=== PATIENT | male | born 1970 | race Caucasian/White ===

== ENCOUNTER 2024-09-24 15:51 | Observation (INO) | payer BC, SELFPAY ==
--- NOTE | 2024-09-12 10:52 | PC.NURSE ---
Report to the Outpatient Waiting Room, entrance under the green pavilion located off [facility], at time __7 AM on date _09/23/24 . Planned Procedure Time: __9 AM .? Time changes happen often and if your time is changed the preop area will call you the afternoon before. - You and your visitor will be asked to self-screen and do not enter if you have any COVID symptoms. Please call surgeon if you need to reschedule. - A mask is optional within the hospital at this time. Patients may have clear liquids (water, carbonated beverages, clear teas, apple juice) until 3 hours prior to surgery ( 6AM ) with a maximum of 20 ounces. - No food from midnight until time of surgery and no smoking, or chewing tobacco (or any form of nicotine). No chewing gum, candy or mints. Take only the following medications with a SIP of water on the morning of surgery: ___OXYCODONE IF NEEDED FOR PAIN,RIFAXIMIN DO NOT STOP ANY OF YOUR OTHER PRESCRIPTION MEDICATIONS PRIOR TO SURGERY EXCEPT THE FOLLOWING Hold all vitamins and supplements for 3 days per anesthesiologist. Medications to discontinue per physician NONE Please no make-up, nail bahamian, hairspray, perfume, deodorant, or body powder the day of surgery.? No jewelry (including any body piercings) or valuables the day of surgery, leave them at home.? Please take a shower or bath the night before, or the morning of, surgery with an antibacterial soap.? Wear comfortable, loose fitting clothing.? Children are encouraged to wear pajamas. - Jewelry must be removed prior to entering the operating room.? Rings and piercings that are not removed may be cut off. - The hospital will not accept responsibility for valuables.? - Please leave all valuables, including medications, at home the day of surgery. If you are going home after surgery, a licensed pickup driver must drive you home.? - NO public transportation without another adult if you receive anesthesia. - We recommend that an adult stay with you for 24 hours following discharge. - We also recommend that you do not drive, make important decision, drink alcoholic beverages, or take any drugs that were not prescribed by your health care provider for at least 24 hours after your discharge time. For Pediatric surgeries, we recommend two adults accompany the child home. Follow any additional instructions given to you from your surgeon. Telephone instructions given to ___PATIENT and asked if any additional questions and then verbalized understanding. Patient advised to call surgeon office or pre surgery nurse liaison [phone] if any additional questions.
[2024-09-12 11:48] VITALS: BMI 28.7
[2024-09-23] VITALS (12 sets, daily range): BP systolic 104–121; BP diastolic 61–78; PULSE 74–95; RESP 12–20; TEMP 36.3–37.2; O2SAT 90–100
--- OUTSIDE RECORDS SUMMARY | 2024-09-23 00:55 | XMS_ITS | Data Portability ---
Author Organization [facility], [address] ([place]) Address [address] 4th [place] [address] Care Team Providers Care Marketing Compliance Manager Name Role Phone VENTURA BANG Recreation Therapist [phone] IBAN SOUZA Primary Care Provider Assessment Encounter Date Assessment Date Assessment LastModified by Organization Details LastModified Time 04/18/2024 04/18/2024 53-year-old male preop appointment for neck fusion surgery. RCRI score is low, he is a surgical risk is acceptable. Labs EKG and MRSA all reviewed no significant abnormality. Advised not to take any NSAID 5 days before surgery. Other preop and postop per surgeon recommendation. I have discussed management and plan with patient. Patient verbalized understanding and agreed with plan. This note was dictated using [employer] speech recognition software. Follow-up with your PCP for chronic conditions and 1 to 2 months. 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 Unfortunately hepatic encephalopathy developed after TIPS and has been difficult to control. He is currently on lactulose plus Xifaxan. He continues to experience difficulty concentrating and frequent forgetfulness. However, symptoms are limited to that and has not required hospitalization. Ascites has for the most part resolved and currently things are stable on furosemide 80 mg and Aldactone 300 mg both once in the morning. Patient has developed multiple hernias in the abdomen requiring surgical interventions. In umbilical hernia that got strangulated and was operated on with subsequent prolonged hospital stay. Then ventral abdominal wall hernia that was operated on in February in [place] per patient. Patient has had more abdominal wall hernias since then and he continues to follow-up in [place] with his surgeon there. Last imaging of the liver was in December showing no focal hepatic lesions of concern. There was a 15 mm left upper kidney indeterminate lesion. Patient has had a fall and multiple fractures and injuries happen because of that. He recently had a cervical spine surgery. Before that he had bilateral shoulder surgeries from the fall. On examination patient was alert and oriented x3, not in apparent distress, well groomed, normal apparent judgment and memory however he was a little slow to respond. Moist mucous membranes with pink conjunctiva and anicteric sclera. No respiratory distress. No ascites detected on examination today. No lower extremity edema. Skin is dry. Normal affect. Assessment/Plan: Decompensated alcoholic cirrhosis: -Liver ultrasound plus AFP in June of this year. -Continue both furosemide 80 mg and Aldactone 300 mg in the morning. -Continue both Xifaxan and lactulose. -Patient will continue to follow-up with his surgeons in [place] regarding his abdominal wall hernias. -A note will be sent to patient's PCP to make sure they are aware of the left kidney lesion to follow-up on as they see fit. -Follow-up in 3 to 6 months. [email or web address] Not available 05/07/2024 11:40:53 05/07/2024 05/07/2024 In summary, this 53-year-old male with a PMH significant for alcoholic liver cirrhosis with ascites and esophageal varices (quit drinking about 7 years ago), prior episodes of hepatic encephalopathy, hernia of the anterior abdominal wall s/p repair on 03/06/24, recently identified kidney lesion, and multiple orthopedic surgeries, most recently of the left shoulder was initially referred to Neurosurgery for cervical stenosis, symptoms including ataxia and RUE pain and paresthesias. His symptoms began after a fall off of a tractor. An MRI of the cervical spine ([facility]; 01/04/24) demonstrated multilevel degenerative changes most significant at C5-6 and C6-7 with moderately severe central and severe bilateral foraminal stenosis, no cord signal changes. Mr. Pickard returns to the office today for a 2 week post-operative follow up status post C5-6-7 ACDF on 04/22. Clinically, he tells me his right arm pain is completely resolved. He is, however, concerned with pain and grinding in the back of the neck. He has been taking the hydrocodone fairly regularly, but took the muscle relaxer only once time. He denies fever, chills, drainage, ataxia, new weakness, difficulty swallowing. His incision looks great- nearly completely healed. At this point, increase activities as tolerated without lifting greater than 20 pounds. He is clear to resume driving as long as he is not taking the narcotic pain medication. Continue to wash the incision lightly with mild soap and water. We will refill the Hydrocodone. I feel the neck pain/grinding may be due to arthritis and also post surgical muscle spasm. We will go ahead and get xrays today, but I believe he just needs to give things more time to heal. Notify the clinic with any fever, drainage, dehiscence, increased pain, need for refills etc. Follow up at 6 weeks post op for clinical re-evaluation and at which point we will discuss the possibility of formal physical therapy. Thank you for allowing us to participate in this patient's care. [email or web address] Not available 05/07/2024 10:21:46 06/06/2024 06/06/2024 In summary, this 53 year old male six weeks status post C5-6-7 ACDF for symptoms of neck pain and right C6/C7 radiculopathy returns for follow up via Telehealth Visit. The patient advises that he is doing well. He states that his arm, shoulder, wrist and elbow, he states that he has zero pain. He denies difficulty swallowing or voice hoarseness or denies apraxia. He states that he has some difficulty walking, but attributes it to having two hernias. He denies drainage or swelling of the incision. Incision appears well-healed. Overall, I am pleased with this patient's recovery from surgery. I look forward to his three month follow up visit with no new imaging. Thank you for allowing us to participate in this patient's care. [email or web address] Not available 06/06/2024 14:20:43 07/18/2024 07/18/2024 Mr. Pickard is a 53-year-old who is now 3 months status post C5-7 ACDF for neck pain and right upper extremity radiculopathy (04/22/24). He reports that his arm symptoms are completely resolved. He continues to have spasm across the neck/shoulders and is on a muscle relaxer. He denies new ataxia, weakness, etc.. Overall, he is very pleased with the results of the surgery. Xrays from today show no complications. He tells me that he has a history of lumbar spinal surgery x 2. He has had longstanding numbness of the right foot after the second surgery. He is wondering if some of his back issues may be attributed to hernia that is requiring intervention in the near future. I recommend that he have that taken care of first, and if he continues to have back and lower extremity symptoms he would need to be worked up by his primary care physician with possible 6 weeks PT or medications prior to MRI. Typically, we would see patients at 6 months postop. But he is doing very well and request to follow-up as needed. He is aware to call with any questions or concerns and we are happy to see him again. [email or web address] Not available 07/18/2024 10:31:23 Plan of Treatment Reminders Order Date Submit Date Provider Last Modified By Organization Details Last Modified Time Details Appointments Establish ed Patient 20.EST 2024 08:00A M Dr. Ventura Bang Not available Not available Not available Lab None recorded. Referral None recorded. Procedures None recorded. Surgeries None recorded. Imaging XR, cervical spine, 2 or 3 view 2024 025 [facility], [address] [place] [address], [id number], 05/07/2024 11:28:53 Medication Orders hydrocodo ne 7.5 mg-acetam inophen 325 mg tablet 2024 025 [email or web address] [facility] [address] [place], [address], 05/07/2024 09:53:46 Patient TargetsNo targets recorded. Patient InstructionsNo instructions recorded. Reason for Referral None Reported. Results Created Date Observation Date Name Description Value Unit Range Abnormal Flag Note LastModifiedBy Organization Detail LastModifiedTime 04/11/20 24 04/11/2024 CBCW/ DIFF WBC 5.51 x10 4.23-9 .07 Not Available [facility] Only - [facility] [address] [place] [address], [id number], 04/11/2024 10:16:45 04/11/20 24 04/11/2024 CBCW/ DIFF RBC 4.38 x10 4.63-6 .08 low Not Available Sc Only - [facility] [address] [place] [address], [id number], 04/11/2024 10:16:45 04/11/20 24 04/11/2024 CBCW/ DIFF hemoglobin 14.2 g/dL 13.7-1 7.5 Not Available Sc Only - [facility] [address], [address], 04/11/2024 10:16:45 04/11/20 24 04/11/2024 CBCW/ DIFF hematocrit 41.2 % 40.1-5 1.0 Not Available Sc Only - [facility] [address], [address], 04/11/2024 10:16:45 04/11/20 24 04/11/2024 CBCW/ DIFF MCV 94.1 fL 79.0-9 2.2 high Not Available Sc Only - [facility] [address] [place] [address], [id number], 04/11/2024 10:16:45 04/11/20 24 04/11/2024 CBCW/ DIFF MCH 32.4 pg 25.7-3 2.2 high Not Available Sc Only - [facility] [address] [place] [address], [address], 04/11/2024 10:16:45 04/11/20 24 04/11/2024 CBCW/ DIFF MCHC 34.5 g/dL 32.3-3 6.5 Not Available Sc Only - [facility] [address] [place] [address], 12506, 04/11/2024 10:16:45 04/11/20 24 04/11/2024 CBCW/ DIFF rdwcv 13.3 % 11.6-1 4.4 Not Available Sc Only - [facility] [address] [place] [address], [address], 04/11/2024 10:16:45 04/11/20 24 04/11/2024 CBCW/ DIFF rdwsd 46.3 fL 35.1-4 3.9 high Not Available Sc Only - [facility] [address] [place] [address], [id number], 04/11/2024 10:16:45 04/11/20 24 04/11/2024 CBCW/ DIFF MPV 9.4 fL 9.4-12 .4 Not Available Sc Only - [facility] [address] [place] [address], [id number], 04/11/2024 10:16:45 04/11/20 24 04/11/2024 CBCW/ DIFF platelets 124 x10 163-33 7 low Not Available Sc Only - [facility] [address] [place] [address], [id number], 04/11/2024 10:16:45 04/11/20 24 04/11/2024 APTT APTT 32.7 secon d(s) 22.9-3 4.4 APTT Hepar in Thera peuti c Range is 73 - 108 secon ds Not Available Sc Only - [facility] [address] [place] [address], [id number], 04/11/2024 10:41:45 04/11/20 24 04/11/2024 PT prothrombin time 14.6 secon d(s) 12.0-1 5.0 Not Available Sc Only - [facility] [address] [place] [address], [id number], 04/11/2024 10:41:46 04/11/20 24 04/11/2024 PT INR 1.1 INR Thera peuti c Range value shoul d be betwe en 2 and 3 Not Available Sc Only - [facility] [address] [place] [address], [id number], 04/11/2024 10:41:46 04/11/20 24 04/11/2024 HFP albumin 3.4 g/dL 3.4-5. 0 Not Available Tn Only - [facility] [address], [address], 04/11/2024 11:14:26 04/11/20 24 04/11/2024 HFP bilirubin (direct) 0.31 mg/dL 0.00-0 .20 high Not Available Sc Only - [facility] [address] [place] [address], [id number], 04/11/2024 11:14:26 04/11/20 24 04/11/2024 HFP bilirubin (total) 0.9 mg/dL 0.2-1. 0 Not Available Sc Only - [facility] [address] [place] [address], [id number], 04/11/2024 11:14:26 04/11/20 24 04/11/2024 HFP AST 39 u/L 15-37 high Not Available Tn Only - [facility] [address] [place] [address], [id number], 04/11/2024 11:14:26 04/11/20 24 04/11/2024 HFP ALT 40 u/L 16-63 Not Available Tn Only - [facility] [address] [place] [address], [id number], 04/11/2024 11:14:26 04/11/20 24 04/11/2024 HFP alk phos 172 u/L 46-116 high Not Availab le Sc Only - [facility] [address] [place] [address], [id number], 04/11/2024 11:14:26 04/11/20 24 04/11/2024 HFP total protein 6.4 g/dL 6.4-8. 2 Not Available Sc Only - [facility] [address] [place] [address], [id number], 04/11/2024 11:14:26 04/11/20 24 04/11/2024 PSA PSA <0.13 NG/mL 0.13-3 .50 low The Sieme ns Dimen melisa Total PSA enzym e immun oassa y was used. Resul ts obtai luis with diffe rent assay metho ds canno t be used inter marek tapia . The jaciel ntrat ion of Total PSA in a given speci men deter mined with assay s from diffe rent manuf actur ers can vary due to diffe rence s in assay metho ds and reage nt speci ficit y. If, in the cours e of monit oring a patie nt, the assay metho d used for deter minin g PSA level s seria lly is jara ed, addit ional seque ntial testi ng shoul d be ann ed out. Not Available Sc Only - [facility] [address], [address], 04/11/2024 11:30:47 04/11/20 24 04/11/2024 UACS color Straw Not Available Sc Only - [facility] [address] [place] [address], [address], 04/11/2024 10:33:05 04/11/20 24 04/11/2024 UACS appearance Clear Not Avail able Sc Only - [facility] [address] [place] [address], [id number], 04/11/2024 10:33:05 04/11/20 24 04/11/2024 UACS specific gravity 1.006 1.003- 1.035 Not Available Sc Only - [facility] [address] [place] [address], [id number], 04/11/2024 10:33:05 04/11/20 24 04/11/2024 UACS pH urine 7.0 5.0-8. 0 Not Available Sc Only - [facility] [address] [place] [address], [id number], 04/11/2024 10:33:05 04/11/20 24 04/11/2024 UACS protein Negati ve Not Available Sc Only - [facility] [address] [place] [address], 114[address], 04/11/2024 10:33:05 04/11/20 24 04/11/2024 UACS urine glucose Negati ve Not Available Tn Only - [facility] [address] [place] [address], [id number], 04/11/2024 10:33:05 04/11/20 24 04/11/2024 UACS ketones Negati ve Not Available Tn Only - [facility] [address] [place] [address], [id number], 04/11/2024 10:33:05 04/11/20 24 04/11/2024 UACS urine bilirubin Negati ve Not Available Tn Only - [facility] [address] [place] [address], [id number], 04/11/2024 10:33:05 04/11/20 24 04/11/2024 UACS urine HGB Negati ve Not Available Tn Only - [facility] [address] [place] [address], 50[address], 04/11/2024 10:33:05 04/11/20 24 04/11/2024 UACS nitrite Negati ve Not Available Tn Only - [facility] [address] [place] [address], 09645, 04/11/2024 10:33:05 04/11/20 24 04/11/2024 UACS leukocyte esterase Negati ve Not Available Tn Only - [facility] [address] [place] [address], [address], 04/11/2024 10:33:05 04/11/20 24 04/11/2024 UACS urobilinogen Negati ve Refer ence Range : <=1 Not Available Tn Only - [facility] [address] [place] [address], [id number], 04/11/2024 10:33:05 04/11/20 24 04/11/2024 UACS urine WBCs 0-2 Refer ence Range : <=5 Not Available Tn Only - [facility] [address] [place] [address], 06115, 04/11/2024 10:33:05 04/11/20 24 04/11/2024 UACS urine RBCs 0-2 Refer ence Range : <=2 Not Available Sc Only - [facility] [address] [place] [address], 21923, 04/11/2024 10:33:05 04/11/20 24 04/11/2024 UACS squamous epithelial cells Few Refer ence Range : <=3+ Not Available Tn Only - [facility] [address] [place] [address], [id number], 04/11/2024 10:33:05 04/11/20 24 04/11/2024 UACS bacteria Negati ve Refer ence Range : <=Tra ce, Non-C ath Not Available Sc Only - [facility] [address] [place] [address], 72512, 04/11/2024 10:33:05 04/11/20 24 04/11/2024 UACS urine ascorbic acid Negati ve Ascor bic acid can inter fere with the detec tion of blood , gluco se, and nitri te. Not Available Tn Only - [facility] [address] [place] [address], [address], 04/11/2024 10:33:05 04/11/20 24 04/11/2024 AUTOD IFF neutrophils 67.6 % 34.0-6 7.9 Not Available Sc Only - [facility] [address] [place] [address], [id number], 04/11/2024 10:20:57 04/11/20 24 04/11/2024 AUTOD IFF lymphocytes 17.2 % 21.8-5 3.1 low Not Available Tn Only - [facility] [address] [place] [address], 94897, 04/11/2024 10:20:57 04/11/20 24 04/11/2024 AUTOD IFF monocytes 9.6 % 5.3-12 .2 Not Available Sc Only - [facility] [address] [place] [address], 75367, 04/11/2024 10:20:57 04/11/20 24 04/11/2024 AUTOD IFF eosinophils 4.4 % 0.8-7. 0 Not Available Sc Only - [facility] [address] [place] [address], [address]13, 04/11/2024 10:20:57 04/11/20 24 04/11/2024 AUTOD IFF basophils 0.5 % 0.2-1. 2 Not Available Sc Only - [facility] [address] [place] [address], 15361, 04/11/2024 10:20:57 04/11/20 24 04/11/2024 AUTOD IFF imm auto 0.7 % 0.0-1. 5 Not Available Tn Only - [address], [address], 04/11/2024 10:20:57 04/11/20 24 04/11/2024 AUTOD IFF NRBC auto 0.0 /100W BC 0.0-0. 2 Not Available Sc Only - [address], [address], 04/11/2024 10:20:57 04/11/20 24 04/11/2024 AUTOD IFF absolute neutrophils 3.72 x10 1.78-5 .38 Not Available Tn Only - [address], [address], 04/11/2024 10:20:57 04/11/20 24 04/11/2024 AUTOD IFF absolute lymphocytes 0.95 x10 1.32-3 .57 low Not Available Sc Only - [facility] [address] [place] [address], 21292, 04/11/2024 10:20:57 04/11/20 24 04/11/2024 AUTOD IFF absolute monocytes 0.53 x10 0.30-0 .82 Not Available Sc Only - [facility] [address] [place] [address], 18632, 04/11/2024 10:20:57 04/11/20 24 04/11/2024 AUTOD IFF absolute eosinophils 0.24 x10 0.04-0 .54 Not Available Sc Only - [facility] [address] [place] [address], 94140, 04/11/2024 10:20:57 04/11/20 24 04/11/2024 AUTOD IFF absolute basophils 0.03 x10 0.01-0 .08 Not Available Sc Only - [facility] [address] [place] [address], 09094, 04/11/2024 10:20:57 04/11/20 24 04/11/2024 AUTOD IFF imm absolute 0.04 x10 0.00-0 .15 Not Available Sc Only - [facility] [address] [place] [address], 78503, 04/11/2024 10:20:57 04/11/20 24 04/11/2024 AUTOD IFF NRBC absolute 0.00 x10 0.00-0 .01 Not Available Sc Only - [facility] [address] [place] [address], 52933, 04/11/2024 10:20:57 04/11/20 24 04/11/2024 AUTOD IFF neutrophils 67.6 % 34.0-6 7.9 Not Available Sc Only - [facility] [address] [place] [address], 75400, 04/11/2024 10:16:44 04/11/20 24 04/11/2024 AUTOD IFF lymphocytes 17.2 % 21.8-5 3.1 low Not Available Sc Only - [facility] [address] [place] [address], 41349, 04/11/2024 10:16:44 04/11/20 24 04/11/2024 AUTOD IFF monocytes 9.6 % 5.3-12 .2 Not Available Sc Only - [facility] [address] [place] [address], 75171, 04/11/2024 10:16:44 04/11/20 24 04/11/2024 AUTOD IFF eosinophils 4.4 % 0.8-7. 0 Not Available Sc Only - [facility] [address] [place] [address], 10579, 04/11/2024 10:16:44 04/11/20 24 04/11/2024 AUTOD IFF basophils 0.5 % 0.2-1. 2 Not Available Sc Only - [facility] [address] [place] [address], 98581, 04/11/2024 10:16:44 04/11/20 24 04/11/2024 AUTOD IFF imm auto 0.7 % 0.0-1. 5 Not Available Sc Only - [facility] [address] [place] [address], 33409, 04/11/2024 10:16:44 04/11/20 24 04/11/2024 AUTOD IFF NRBC auto 0.0 /100W BC 0.0-0. 2 Not Available Sc Only - [facility] [address] [place] [address], [address], 04/11/2024 10:16:44 04/11/20 24 04/11/2024 AUTOD IFF absolute neutrophils 3.72 x10 1.78-5 .38 Not Available Sc Only - [facility] [address] [place] [address], 47864, 04/11/2024 10:16:44 04/11/20 24 04/11/2024 AUTOD IFF absolute lymphocytes 0.95 x10 1.32-3 .57 low Not Available Sc Only - [facility] [address] [place] [address], 96422, 04/11/2024 10:16:44 04/11/20 24 04/11/2024 AUTOD IFF absolute monocytes 0.53 x10 0.30-0 .82 Not Available Sc Only - [facility] [address] [place] [address], 93725, 04/11/2024 10:16:44 04/11/20 24 04/11/2024 AUTOD IFF absolute eosinophils 0.24 x10 0.04-0 .54 Not Available Sc Only - [facility] [address] [place] [address], 94341, 04/11/2024 10:16:44 04/11/20 24 04/11/2024 AUTOD IFF absolute basophils 0.03 x10 0.01-0 .08 Not Available Sc Only - [facility] [address] [place] [address], 08174, 04/11/2024 10:16:44 04/11/20 24 04/11/2024 AUTOD IFF imm absolute 0.04 x10 0.00-0 .15 Not Available Sc Only - [facility] [address] [place] [address], 80821, 04/11/2024 10:16:44 04/11/20 24 04/11/2024 AUTOD IFF NRBC absolute 0.00 x10 0.00-0 .01 Not Available Sc Only - [facility] [address] [place] [address], 94342, 04/11/2024 10:16:44 04/12/20 24 04/12/2024 CBCW/ DIFF WBC 5.05 x10 4.23-9 .07 Not Available Sc Only - [facility] [address] [place] [address], 29690, 04/12/2024 09:12:58 04/12/20 24 04/12/2024 CBCW/ DIFF RBC 3.98 x10 4.63-6 .08 low Not Available Sc Only - [facility] [address] [place] [address], 10882, 04/12/2024 09:12:58 04/12/20 24 04/12/2024 CBCW/ DIFF hemoglobin 13.0 g/dL 13.7-1 7.5 low Not Available Sc Only - [facility] [address] [place] [address], 29909, 04/12/2024 09:12:58 04/12/20 24 04/12/2024 CBCW/ DIFF hematocrit 37.4 % 40.1-5 1.0 low Not Available Sc Only - [facility] [address] [place] [address], 74484, 04/12/2024 09:12:58 04/12/20 24 04/12/2024 CBCW/ DIFF MCV 94.0 fL 79.0-9 2.2 high Not Available Sc Only - [facility] [address] [place] [address], 52356, 04/12/2024 09:12:58 04/12/20 24 04/12/2024 CBCW/ DIFF MCH 32.7 pg 25.7-3 2.2 high Not Available Sc Only - [facility] [address] [place] [address], 64712, 04/12/2024 09:12:58 04/12/20 24 04/12/2024 CBCW/ DIFF MCHC 34.8 g/dL 32.3-3 6.5 Not Available Sc Only - [facility] [address] [place] [address], 96160, 04/12/2024 09:12:58 04/12/20 24 04/12/2024 CBCW/ DIFF rdwcv 13.4 % 11.6-1 4.4 Not Available Sc Only - [facility] [address] [place] [address], 55312, 04/12/2024 09:12:58 04/12/20 24 04/12/2024 CBCW/ DIFF rdwsd 46.5 fL 35.1-4 3.9 high Not Available Sc Only - [facility] [address] [place] [address], 15795, 04/12/2024 09:12:58 04/12/20 24 04/12/2024 CBCW/ DIFF MPV 10.7 fL 9.4-12 .4 Not Available Sc Only - [facility] [address] [place] [address], 03727, 04/12/2024 09:12:58 04/12/20 24 04/12/2024 CBCW/ DIFF platelets 113 x10 163-33 7 low Not Available Tn Only - [facility] [address] [place] [address], 98126, 04/12/2024 09:12:58 04/12/20 24 04/12/2024 CMP sodium 136 mmol/ L 135-14 8 Not Available Tn Only - [facility] [address] [place] [address], 56804, 04/12/2024 09:33:18 04/12/20 24 04/12/2024 CMP potassium 3.9 mmol/ L 3.5-5. 3 Not Available Tn Only - [facility] [address] [place] [address], 31393, 04/12/2024 09:33:18 04/12/20 24 04/12/2024 CMP chloride 101 mmol/ L 96-112 Not Available Tn Only - [facility] [address] [place] [address], 80188, 04/12/2024 09:33:18 04/12/20 24 04/12/2024 CMP CO2 28 mmol/ L 23-33 Not Available Tn Only - [facility] [address] [place] [address], 36030, 04/12/2024 09:33:18 04/12/20 24 04/12/2024 CMP BUN 17 mg/dL 7-18 Not Available Tn Only - [facility] [address] [place] [address], 58143, 04/12/2024 09:33:18 04/12/20 24 04/12/2024 CMP creatinine 1.23 mg/dL 0.70-1 .30 Not Available Tn Only - [facility] [address] [place] [address], 67161, 04/12/2024 09:33:18 04/12/20 24 04/12/2024 CMP glucose 206 mg/dL 65-99 high Not Availabl e Tn Only - [facility] [address] [place] [address], [id number], 04/12/2024 09:33:18 04/12/20 24 04/12/2024 CMP calcium 8.2 mg/dL 8.5-10 .1 low Not Available Tn Only - [facility] [address] [place] [address], 79617, 04/12/2024 09:33:18 04/12/20 24 04/12/2024 CMP total protein 5.7 g/dL 6.4-8. 2 low Not Available Tn Only - [facility] [address] [place] [address], [address], 04/12/2024 09:33:18 04/12/20 24 04/12/2024 CMP albumin 2.9 g/dL 3.4-5. 0 low Not Available Tn Only - [facility] [address] [place] [address], [address], 04/12/2024 09:33:18 04/12/20 24 04/12/2024 CMP bilirubin (total) 0.8 mg/dL 0.2-1. 0 Not Available Tn Only - [facility] [address] [place] [address], 67[address], 04/12/2024 09:33:18 04/12/20 24 04/12/2024 CMP AST 35 u/L 15-37 Not Available Tn Only - [facility] [address] [place] [address], [address], 04/12/2024 09:33:18 04/12/20 24 04/12/2024 CMP alk phos 155 u/L 46-116 high Not Availab le Sc Only - [facility] [address] [place] [address], [address], 04/12/2024 09:33:18 04/12/20 24 04/12/2024 CMP ALT 36 u/L 16-63 Not Available Tn Only - [facility] [address] [place] [address], [address], 04/12/2024 09:33:18 04/12/20 24 04/12/2024 CMP anion gap 7 mmol/ L 7-16 Not Available Tn Only - [facility] [address] [place] [address], [address], 04/12/2024 09:33:18 04/12/20 24 04/12/2024 MRSA PCR MRSA PCR Not Detect ed MRSA DNA is NOT DETEC SARINA. A Negat priyank test resul t does not exclu de the possi bilit y of nasal colon izati on becau se test resul ts may be affec sarina by impro per speci men colle ction or becau se the numbe r of organ isms in the sampl e is below the limit of detec tion of the test. The Xpert MRSA NxG metho d was used for testi ng. The test perfo rmanc e has not been evalu ated in patie nts less than two years of age. The test is not inten ded to diagn ose, guide or monit or treat ment for MRSA infec tions , or deter mine susce ptibi lity to methi cilli n. The resul ts shoul d be inter prete d in conju nctio n with other labor atory and clini chi data avail able to the clini anamaria, and shoul d be used as an adjun ct to nosoc omial infec tion contr ol effor ts to ident gregor patie nts needi ng enhan sonam preca ution s. A posit priyank resul t does not neces saril y indic ate inter venti on eradi catio n failu re since nonvi able DNA may persi st. A negat priyank resul t follo wing a previ ously posit priyank test resul t may or may not indic ate eradi catio n succe ss. Becau se the detec tion of MRSA is depen dent on the quant ity DNA prese nt in the sampl e, relia ble resul ts are depen dent on prope r speci men colle ction , handl ing, and stora ge. Not Available Tn Only - [facility] [address] [facility], [place], [address], 04/12/2024 10:41:57 04/12/20 24 04/12/2024 RTUA color STRAW Not Available Tn Only - [facility] [address], [address], 04/12/2024 09:13:56 04/12/20 24 04/12/2024 RTUA appearance CLEAR Not Avail able Tn Only - [facility] [address] [place] [address], [address], 04/12/2024 09:13:56 04/12/20 24 04/12/2024 RTUA specific gravity 1.005 1.003- 1.035 Not Available Tn Only - [facility] [address] [place] [address], [address], 04/12/2024 09:13:56 04/12/20 24 04/12/2024 RTUA pH urine 7.0 5.0-8. 0 Not Available Tn Only - [address], [address], 04/12/2024 09:13:56 04/12/20 24 04/12/2024 RTUA protein NEGATI VE Not Available Tn Only - [address], [address], 04/12/2024 09:13:56 04/12/20 24 04/12/2024 RTUA urine glucose 2+ abnormal Not Available Tn On y - [address], [address], 04/12/2024 09:13:56 04/12/20 24 04/12/2024 RTUA ketones NEGATI VE Not Available Tn Only - [address], [address], 04/12/2024 09:13:56 04/12/20 24 04/12/2024 RTUA urine bilirubin NEGATI VE Not Available Tn Only - [address], [address], 04/12/2024 09:13:56 04/12/20 24 04/12/2024 RTUA urine HGB NEGATI VE Not Available Tn Only - [facility] [address] [place] [address], [address], 04/12/2024 09:13:56 04/12/20 24 04/12/2024 RTUA nitrite NEGATI VE Not Available Tn Only - [facility] [address] [place] [address], 24[address], 04/12/2024 09:13:56 04/12/20 24 04/12/2024 RTUA leukocyte esterase NEGATI VE Not Available Tn Only - [facility] [address] [place] [address], [address], 04/12/2024 09:13:56 04/12/20 24 04/12/2024 RTUA urobilinogen NEGATI VE Refer ence Range : <=1 Not Available [facility] [address] [place] [address], [address], 04/12/2024 09:13:56 04/12/20 24 04/12/2024 RTUA urine WBCs 3-5 Refer ence Range : <=5 Not Available Tn Only [facility] [address] [place] [address], [address], 04/12/2024 09:13:56 04/12/20 24 04/12/2024 RTUA urine RBCs 0-2 Refer ence Range : <=2 Not Available [facility] [address] [place] [address], [address], 04/12/2024 09:13:56 04/12/20 24 04/12/2024 RTUA squamous epithelial cells FEW Refer ence Range : <=3+ Not Available Tn Only - [facility] [address] [place] [address], [address], 04/12/2024 09:13:56 04/12/20 24 04/12/2024 RTUA bacteria NEGATI VE Refer ence Range : <=Tra ce, Non-C ath Not Available [facility] [address] [place] [address], [address], 04/12/2024 09:13:56 04/12/20 24 04/12/2024 RTUA urine ascorbic acid NEGATI VE Ascor bic acid can inter fere with the detec tion of blood , gluco se, and nitri te. Not Available Sc Only - [facility] [address] [place] [address], [address], 04/12/2024 09:13:56 04/12/20 24 04/12/2024 EGFR eGFR 70 mL/mi n/1.7 3m? This eGFR is calcu lated using 2020 CKD-E PI Creat inine equat ion witho ut race modif ier based on the NKF-A SN task force recom menda tions . In most healt hy peopl e, the yari l GFR is 90 mL/mi n/1.7 3 m2 or highe r. - A resul t of 60-89 mL/mi n/1.7 3 m2 witho ut kidne y damag e may be yari l in some peopl e (such as the elder ly, infan ts). - A resul t of 60-89 mL/mi n/1.7 3 m2 for three month s or more, along with kidne y damag e (such as persi stent prote in in the urine ), means the perso n has early kidne y disea se. - When the GFR is <60 for three month s or more, chron ic kidne y disea se (CKD) is prese nt. Not Available Sc Only - [facility] [address] [place] [address], [address], 04/12/2024 09:33:22 04/12/20 24 04/12/2024 AUTOD IFF neutrophils 68.9 % 34.0-6 7.9 high Not Available Sc Only - [facility] [address] [place] [address], [address], 04/12/2024 09:12:57 04/12/20 24 04/12/2024 AUTOD IFF lymphocytes 18.2 % 21.8-5 3.1 low Not Available Sc Only - [facility] [address] [place] [address], 7[address], 04/12/2024 09:12:57 04/12/20 24 04/12/2024 AUTOD IFF monocytes 9.3 % 5.3-12 .2 Not Available Tn Only - [facility] [address] [place] [address], [address], 04/12/2024 09:12:57 04/12/20 24 04/12/2024 AUTOD IFF eosinophils 2.4 % 0.8-7. 0 Not Available Tn Only - [facility] [address] [place] [address], [address], 04/12/2024 09:12:57 04/12/20 24 04/12/2024 AUTOD IFF basophils 0.6 % 0.2-1. 2 Not Available Tn Only - [address], [address], 04/12/2024 09:12:57 04/12/20 24 04/12/2024 AUTOD IFF imm auto 0.6 % 0.0-1. 5 Not Available Tn Only - [address], [address], 04/12/2024 09:12:57 04/12/20 24 04/12/2024 AUTOD IFF NRBC auto 0.0 /100W BC 0.0-0. 2 Not Available Sc Only - [address], [address], 04/12/2024 09:12:57 04/12/20 24 04/12/2024 AUTOD IFF absolute neutrophils 3.48 x10 1.78-5 .38 Not Available Sc Only - [facility] [address] [place] [address], [address], 04/12/2024 09:12:57 04/12/20 24 04/12/2024 AUTOD IFF absolute lymphocytes 0.92 x10 1.32-3 .57 low Not Available Tn Only - [facility] [address] [place] [address], 40605, 04/12/2024 09:12:57 04/12/20 04/12/2024 AUTOD IFF absolute monocytes 0.47 x10 0.30-0 .82 Not Available Tn Only - [address], [address], 04/12/2024 09:12:57 04/12/20 24 04/12/2024 AUTOD IFF absolute eosinophils 0.12 x10 0.04-0 .54 Not Available Tn Only - [address], [address], 04/12/2024 09:12:57 04/12/20 24 04/12/2024 AUTOD IFF absolute basophils 0.03 x10 0.01-0 .08 Not Available Tn Only - [address], [address], 04/12/2024 09:12:57 04/12/20 24 04/12/2024 AUTOD IFF imm absolute 0.03 x10 0.00-0 .15 Not Available Tn Only - [address], [address], 04/12/2024 09:12:57 04/12/20 24 04/12/2024 AUTOD IFF NRBC absolute 0.00 x10 0.00-0 .01 Not Available Tn Only - [address], [address], 04/12/2024 09:12:57 05/07/19 25 05/07/2024 XR, cervi chi spine , 2 [place] 3 [place] [address] Teleph one [phone] Name: Jose Alberto Varma mp [id number] am Date: 2024 Age: 53Phys ician: Joshua n, SQL DATA ANALYST, Sonia adan : 1970Ex aminat ion: XR CERVIC AL 2 OR 3 VIEWS EXAMIN ATION: Cervic al Spine HISTOR Y: Fall 9 feet in September 2023. Surger y . Follow up imagin g. No compla ints. TECHNI QUE: 3 views of the cervic al spine obtain ed. COMPAR NATE: 024 FINDIN GS: There is new anteri or plate and screw fixati on of interb jennifer grafts spanni ng C5-C7. Hardwa re appear s intact and well seated . There is straig htenin g of the lordos is withou t sublux ation. Verteb ral body height s are mainta ined. Nonope rative disc height s are mainta ined. Mild facet hypert rophy. Base of the odonto id is intact , and latera l masses are normal ly aligne d. Postop erativ e change s to the left clavic le. IMPRES MELISA: New C5-C7 fusion withou t compli cating featur e. Electr onical ly signed in [place] cribe by: JOSE ALBERTO COLEMAN MD on:04/24 10:25 AM cc: Page PAGE 1 of [facility] 1 CARLOS Sc Only - [facility] [address] [place] [address], [address], 05/14/2024 12:44:54 05/07/19 25 01/05/2024 MRI, cervi chi spine , w/o contr ast No observ ation record ed. [email or web address] Not Available 2024 18:29:21 07/19/19 25 07/18/2024 XR, cervi chi spine , 2 or [address] [address] Teleph one Name: Jose Alberto Varma mp [id number] am Date: 2024 Age: 53Phys ician: Gloria jimenez MD, Leandra : 1970Ex aminat ion: XR CERVIC AL 2 OR 3 VIEWS EXAM: XR CERVIC AL 2 OR 3 VIEWS HISTOR Y: 2 month post op follow up, No new issues . TECHNI QUE: Cervic al spine 3 views COMPAR NATE: Cervic al spine radiog raph 025 FINDIN GS: There is postop erativ e change of ACDF at C5-6 and C6-7. The surgic al hardwa re appear s simila r in alignm ent to the prior examin ation. Prever tebral soft tissue s are normal . No fractu re is visual ized. The facet joints are aligne d bilate rally. The odonto id proces s appear s intact . Partia lly imaged fixati ng plate and screws of the left clavic le is noted. IMPRES MELISA: Postop erativ e change as above withou t acute compli cation . Electr onical ly signed in [place]onnell cribe by: KARIE JULIAN MD on:06/23 8:38 AM cc: Page PAGE 1 of [facility] ES 1 [place] Sc Only - [facility] [address] [place] [address], [address], 07/20/2024 16:30:58 08/09/19 25 08/08/2024 US, abdom en, limit ed [facility] [address] [place] [address] Name: JOSE ALBERTO VARMA MP Age: 53 : 1970 Exam Date: 2024 ACCESS ION: [id number] ORDERI NG MD: VENTURA BANG EXAM: Ultras ound of the Abdome n, Limite d HISTOR Y: alcoho lic cirrho sis of liver, hx TIPS 2023 COMPAR NATE: Renal ultras ound TECHNI QUE: Graysc haleigh imagin g of the right upper quadra nt of the abdome n was perfor med. Target ed hepati c evalua tion. Patien t unable to hold breath for images . Best obtain able images are presen sarina. FINDIN GS Liver: Lobula sarina contou r liver with diffus e hetero geneou s echote xture and hypere chogen icity. Liver measur es approx imatel y 14 cm in cranio caudal dimens ion. Main portal vein and hepati c veins appear patent . Biliar y Tree: No eviden ce of intrah epatic or extrah epatic biliar y ductal dilata tion. Gallbl adder: 2 abutti ng echoge nicity in the gallbl adder lumen which appear s non mobile , measur ing 0.8 x 0.6 centim eters. Additi onal antide penden t echoge nicity in the gallbl adder fundus measur ing 1.0 x 0.8 x 0.8 cm. No eviden ce of gallbl adder wall thicke erin. TIPS appear s patent with peak systol ic veloci ty of 103.7 cm/sec . IVC is patent . Hepati c artery is within normal limits . IMPRES MELISA: Patenc y of the TIPS with normal veloci ty. Stigma ta hepati c cirrho sis withou t eviden ce of discre te suspic ious mass. Echoge radha lesion s in the gallbl adder fundus which appear non mobile and adhere nt to the wall. These could repres ent polyps versus adhere nt stones . Recomm end clinic al correl ation which may includ e attent ion on follow -up. This report was dictat ed remote ly by a [facility] Radiol ogist in [place], [place]. /PP:pp D: 2024 11:24 T: 2024 11:24 Final Report Dictat ed: 11:24 Jacob Case MD Signed : 11:24 Jacob Case MD [facility] Only - [facility] [address] [place] [address], [address], 08/16/2024 16:45:38 Result Notes None recorded. Problems Name Problem SNOMED Code Status Onset Date Resolution Date Notes Provider Name and Address Organization Details Recorded Time Pain of left shoulder joint 9297706110613 9109 Active 2023 Secily Fillip [facility] 4 14:12:43 Pain of right shoulder joint 4543891711714 9100 [facility] 4 14:23:35 Cervical radiculopat 25674803 Active 2023 Rosita Tobin, TRASH MAN, INVERTED BLOCK OPERATOR [address] [place] [address], [address], [facility] 4 12:58:11 Serum creatinine above reference range 233164363 Active 2023 Rosita Tobin, SUSANNA, INVERTED BLOCK OPERATOR [address] [place] [address], [address], [facility] 4 13:01:23 Erectile dysfunction 826332344 Active 2023 Madhuri Demian [facility] 4 12:17:46 Partial thickness rotator cuff tear 642547217 Active 2023 Concepcion Arevalo [facility] 4 13:50:13 Bursitis of right shoulder 9503907424791 07 Active 2023 Concepcion Arevalo [facility] 4 13:50:18 Closed fracture of clavicle 96373870 Active 2023 Concepcion Arevalo [facility] 4 13:50:34 Pain associated with internal prosthetic device 320382231 Active 2023 Concepcion Arevalo [facility] 4 13:51:08 Closed fracture of right scapula 3847645445034 9105 Active 2023 Concepcion Arevalo [facility] 4 13:51:31 Hernia of anterior abdominal wall 647769866 Active 2023 Marguerite Harvey null, [facility] 4 16:00:15 Esophageal varices 85908984 Active 2023 Anny Gilbert [facility] 4 21:17:39 Secondary erectile dysfunction 470032573 Active 2023 Ellen Mendosa, SUSANNA, INVERTED BLOCK OPERATOR [address] [place] [address], [place], [address], [facility] 4 09:37:01 Kidney lesion 1436034318421 0 Active 2023 Madhuri Demian [facility], [facility] 4 13:55:24 Spinal stenosis in cervical region 92651108 Active 2023 [facility] 4 15:39:23 Alcoholic cirrhosis 653594867 Active 2023 Ventura Bang MD [address] [place] [address], [address], [facility] 5 11:36:47 Closed fracture of left clavicle 2444574404559 9105 Active 2023 Adriana Ag [facility] 4 15:06:01 Ascites due to alcoholic cirrhosis 8599404333621 104 Active 2023 Ventura Bang MD [address] [place] [address], [address], [facility] 4 09:27:35 Peripheral edema 709290336 Active 2023 Ventura Bang MD [address] [place] [address], [address], [facility] 4 09:27:53 Hepatic encephalopa thy 28380106 Active 2023 Ventura Bang MD [address] [place] [address], [address], [facility] 5 11:36:58 Constipatio n 45186602 Active 2023 Gillian Greg [facility] 4 09:49:44 Problem Notes Documentation Provider Name and Address Organization Details Recorded Time [facility] [address] [place] [id number] Jose Alberto Pickard 53yo M 1970 #[id number] 05/07/2024 Cayetano Larsen MD, Jose Alberto Pickard was seen in our office today 05/07/2024, and a copy of that evaluation is enclosed. Thank you for allowing us to participate in the care of your patient. Please contact us with any questions. Sincerely, Electronically Signed by: VENTURA BANG MD Encounter Reason/Date 3month follow up 05/07/2024 - 10:20AM - [facility] ([place])ProblemsProblems not reviewed (last reviewed 04/18/2024) Erectile dysfunction - Onset: 12/19/2023 Esophageal varices - Onset: 05/25/2023 Hernia of anterior abdominal wall - Onset: 12/27/2023 Constipation - Onset: 11/17/2023 Alcoholic cirrhosis - Onset: 09/28/2023 Hepatic encephalopathy - Onset: 11/17/2023 Spinal stenosis in cervical region - Onset: 02/11/2024 Cervical radiculopathy - Onset: 12/13/2023 Peripheral edema - Onset: 11/17/2023 Closed fracture of clavicle - Onset: 12/21/2023, Left Partial thickness rotator cuff tear - Onset: 12/21/2023, Right Pain associated with internal prosthetic device - Onset: 12/21/2023 Closed fracture of left clavicle - Onset: 11/08/2023 Ascites due to alcoholic cirrhosis - Onset: 11/17/2023 Pain of left shoulder joint - Onset: 11/22/2023 Pain of right shoulder joint - Onset: 11/22/2023 Serum creatinine above reference range - Onset: 12/13/2023 Bursitis of right shoulder - Onset: 12/21/2023 Closed fracture of right scapula - Onset: 12/21/2023 Secondary erectile dysfunction - Onset: 01/05/2024 Kidney lesion - Onset: 01/18/2024 Allergies Allergies not reviewed (last reviewed 04/18/2024) ADHESIVE TAPE: Other - Skin gets pulled off BIAXIN: - Reaction: Other: silk sutures: body rejects; Comment: Other ; PENICILLINS: - Reaction: Swelling; Visual Disturbance; Anaphylaxis; Comment: Annotations: ANALY ORANTES [id number] 3:35PM Throat swells shut; ; SUTURE: - silk suture- infected in every spot where suture was SUTURES VENOM-HONEY BEE: - Comment: Bee sting ; Some allergies listed in Document: #[id number] could not be added to this patient's chart. Please review this document and add these allergies to the patient's chart manually as needed. Medications Reviewed Medications NameDate Source Constulose 10 gram/15 mL oral solutionTAKE 30 ML BY MOUTH UP TO THREE TIMES DAILY TNUHRM85/15/24 filled surescripts furosemide 80 mg tabletTake 1 tablet by mouth once daily04/11/24 renewed Ventura Bang MD HYDROcodone 7.5 mg-acetaminophen 325 mg tabletTake 1 tablet(s) every 6 hours by oral route as needed.05/07/24 prescribed Keerthi Olivas APRN, CNP lactulose 20 gram/30 mL oral solutionTake 30ML up to three times as day as needed.02/06/24 prescribed Ventura Bang MD sildenafiL 100 mg tabletTAKE 1/2 (ONE-HALF) TABLET BY MOUTH DIRECTED 1 HOUR PRIOR TO SEXUAL ACTIVITY LXGWBI36/04/24 filled surescripts spironolactone 100 mg tabletTAKE 1 & 1/2 (ONE & ONE-HALF) TABLETS BY MOUTH IN THE MORNING THEN REPEAT BETWEEN 1-2 PM IN THE AFTERNOON DAILY03/14/24 renewed Ventura Bang MD traZODone 50 mg tabletTAKE 1 & 1/2 (ONE & ONE-HALF) TABLETS BY MOUTH AT QZFGDNP13/09/25 renewed Ventura Bang MD Xifaxan 550 mg tabletTake 1 tablet by mouth twice daily04/11/24 renewed Ventura Bang MD Some medications listed in Document: #[id number] could not be added to this patient's chart. Please review this document and add these medications to the patient's chart manually as needed.Family HistoryFamily History not reviewed (last reviewed 02/07/2024) Unspecified Relation - Heart disease - Malignant neoplastic disease - Hypertensive disorder - Cerebrovascular accident - Diabetes mellitus Social HistoryReviewed Social History Substance UseDo you or have you ever smoked tobacco?: Never smokerSmokeless tobacco?: Currently chews tobaccoWhat is your level of alcohol consumption?: NoneEducation and OccupationAre you currently employed?: [employer], Type: Chronic Last Edited: 16 Feb 2016 8:21AM ICD9 Code: 305.1 Last Reviewed Date: 20160216 SnomedCode: 76286889 ICD10 Code: Z72.0 Consumes alcohol-daily, Type: Chronic Identified By: ADRIANA LIU Last Edited: 20 Aug 2020 2:16PM ICD9 Code: V49.89 Last Reviewed Date: 20200820 SnomedCode: 755099 ICD10 Code: Z78.9 Never a smoker, Type: Chronic Identified By: ADRIANA LIU Last Edited: 20 Aug 2020 2:16PM Last Reviewed Date: 20200820 SnomedCode: [id number] Surgical HistorySurgical & Procedure History not reviewed (last reviewed 01/17/2024) Removal of device - 01/26/2024 - R SCAPULA HW REMOVAL Optx clavicular fx w/int fix - 11/09/2023 - Left distal clavicle ORIF done [facility] with Dr Moody Additional HistoryNone recordedHistory of Present IllnessReason for visit: Referring provider: Previous history of MRSA Y Previous history VRE N Previous history of Cdiff N Blood Thinners? N ____ Diabetic? N ____ Latex Allergy? YReview of SystemsNone recordedPhysical ExamNone recordedProcedure DocumentationNone recordedAssessment/Lrsw85-e ear-old male with history of alcoholic cirrhosis complicated by refractory ascites which required placement of TIPS. Unfortunately hepatic encephalopathy developed after TIPS and has been difficult to control. He is currently on lactulose plus Xifaxan. He continues to experience difficulty concentrating and frequent forgetfulness. However, symptoms are limited to that and has not required hospitalization. Ascites has for the most part resolved and currently things are stable on furosemide 80 mg and Aldactone 300 mg both once in the morning. Patient has developed multiple hernias in the abdomen requiring surgical interventions. In umbilical hernia that got strangulated and was operated on with subsequent prolonged hospital stay. Then ventral abdominal wall hernia that was operated on in February in [place] per patient. Patient has had more abdominal wall hernias since then and he continues to follow-up in [place] with his surgeon there. Last imaging of the liver was in December showing no focal hepatic lesions of concern. There was a 15 mm left upper kidney indeterminate lesion. Patient has had a fall and multiple fractures and injuries happen because of that. He recently had a cervical spine surgery. Before that he had bilateral shoulder surgeries from the fall.On examination patient was alert and oriented x3, not in apparent distress, well groomed, normal apparent judgment and memory however he was a little slow to respond. Moist mucous membranes with pink conjunctiva and anicteric sclera. No respiratory distress. No ascites detected on examination today. No lower extremity edema. Skin is dry. Normal affect. Assessment/Plan: Decompensated alcoholic cirrhosis: -Liver ultrasound plus AFP in June of this year. -Continue both furosemide 80 mg and Aldactone 300 mg in the morning. -Continue both Xifaxan and lactulose. -Patient will continue to follow-up with his surgeons in [place] regarding his abdominal wall hernias. -A note will be sent to patient's PCP to make sure they are aware of the left kidney lesion to follow-up on as they see fit. -Follow-up in 3 to 6 months. 1.Alcoholic cirrhosis of liver with clypmrzQ98.31: Alcoholic cirrhosis of liver with ascites 2.Hepatic ssozanqtwtfkatL79.82: Hepatic encephalopathy Return to Office Leandra Collier MD for Post Op 15.EST at [address] [place] [address] Neurosurgery ([place]) on 06/04/2024 at 10:15 AM Ventura Bang MD for Established Patient 20.EST at [facility] 2nd Gastroenterology ([place]) on 09/27/2024 at 09:00 AM Eliza Larsen MD [address] [place] [address], [phone], [facility] 05/07/2024 12:20:24 Procedures Surgical History Date Name Laterality Status Provider Name and Address Organization Details Recorded Time 04/22/20 24 fusion of joint of cervical spine with internal fixation by anterior approach completed Katie Noe [facility] 07/18/2024 09:02:43 01/26/20 24 removal of device completed Abdiel Draper [facility] 02/08/2024 11:03:28 11/09/19 24 [place] Blank Procedure Template completed Arielle Moody MD [address] [place] [address], [phone], [facility] 11/09/2023 16:01:19 11/09/19 24 SC Anes PostOp Pain Up Ext Nerve Block completed Jason Mcgregor MD [address] [place] [address], [phone], [facility] 11/09/2023 13:59:07 11/09/19 24 Optx clavicular fx w/int fix completed Adriana Ag [facility] 11/13/2023 15:33:22 Imaging Results None recorded. Procedure Notes None recorded. Medical Equipment None Reported. Allergies Allergen ID Allergen Name Allergen Category Reaction Reaction Severity Criticality Documentation Date Start Date Code Code System Note Provider Name and Address Organization Details Recorded Time 4682943 adhesive tape environme nt,medica tion other Not available Not available 11/08/2023 98312 UNK [facility]le [facility] 14:52:40 5927262 suture Not available Not available Not available Not available 11/08/2023 46400 UNK silk sutur e- infe cted in every spot where sutur e was [facility] 4 14:53:38 7723947 Suture (physical object) Not available Not available Not available Not available 11/08/2023 27739 9007 SNOMED [facility] 4 15:02:15 922263 Biaxin medicatio n Not available Not available Not available 05/22/20232007 59672 9 RxNorm React ion: Other : silk sutur es: body rejec ts; Comme nt: Other ; Not Available [facility] 4 23:12:18 807053 Product containin g penicilli n (product) medicatio n Not available Not available Not available 05/22/20232007 77453 8001 SNOMED React ion: Swell ing; Visua l Distu rbanc e; Anaph ylaxi s; Comme nt: Annot ation s: ANALY ORANTES 2016 3:35P M Throa t swell s shut; ; Not Available [facility] 4 23:12:22 875368 honey bee venom environme nt Not available Not available Not available 05/22/20232007 50150 7 RxNorm Comme nt: Bee sting ; Not Available [facility] 4 23:12:23 Medications Name Sig Start Date Stop Date Status Note LastModified by Organization Details LastModified Time Prescript ion - Prior Authoriza tion Request active Not Available Not Available Not Available cyclobenz aprine 10 mg tablet TAKE 1 TABLET BY MOUTH THREE TIMES DAILY FOR 30 DAYS active Not Available Not Available No t Available furosemid e 40 mg tablet TAKE 1 TABLET BY MOUTH ONCE DAILY 12/19 completed Not Available Not Available Not Available trazodone 50 mg tablet TAKE 1 & 1/2 (ONE & ONE-HALF ) TABLETS BY MOUTH AT BEDTIME active Not Available Not Available No t Available hydrocodo ne 5 mg-acetam inophen 325 mg tablet 12/19 completed Not Available Not Available Not Available spironola ctone 100 mg tablet Take 3 tablets every day by oral route for 30 days. 2024 active GI-Annab a-sendin g 30 days at a time to keep dose correct for pt labs due in September Not Available Not Available Not Available midodrine 5 mg tablet TAKE 3 TABLETS BY MOUTH THREE TIMES DAILY 12/19 completed Not Available Not Available Not Available ciproflox acin 500 mg tablet TAKE 1 TABLET BY MOUTH EVERY 24 HOURS 12/12 completed Not Available Not Available Not Available sildenafi l 100 mg tablet TAKE 1/2 (ONE-NICOLETTE F) TABLET BY MOUTH DIRECTED 1 HOUR PRIOR TO SEXUAL ACTIVITY NEEDED active Not Available Not Available No t Available spironola ctone 25 mg tablet TAKE 1 TABLET BY MOUTH ONCE DAILY FOR 30 DAYS 11/16 completed Not Available Not Available Not Available meloxicam 7.5 mg tablet TAKE 1 TABLET BY MOUTH ONCE DAILY FOR 7 DAYS 12/19 completed Not Available Not Available Not Available furosemid e 80 mg tablet TAKE 1 TABLET BY MOUTH ONCE DAILY FOR 30 DAYS active Not Available Not Available No t Available hydrocodo ne 7.5 mg-acetam inophen 325 mg tablet TAKE 1 TABLET BY MOUTH EVERY 6 HOURS NEEDED active Not Available Not Available No t Available orphenadr ine citrate ER 100 mg tablet,ex tended release 12/19 completed Not Available Not Available Not Available gabapenti n 300 mg capsule 12/12 completed Not Available Not Available Not Available folic acid 1 mg tablet TAKE 1 TABLET BY MOUTH ONCE DAILY 12/19 completed Not Available Not Available Not Available mupirocin 2 % topical ointment APPLY TO EACH NOSTRIL TWICE DAILY FOR 5 DAYS PRIOR TO SURGERY 04/18 completed Not Available Not Available Not Available furosemid e 20 mg tablet TAKE 1 TABLET BY MOUTH ONCE DAILY WITH THE 40 MG TABLET 11/16 completed Not Available Not Available Not Available spironola ctone 50 mg tablet 11/16 completed Not Available Not Available Not Available oxycodone 5 mg tablet Take 1 tablet every 12 hours by oral route as needed, for PAIN. 05/07 completed Not Available Not Available Not Available Constulos e 10 gram/15 mL oral solution TAKE 60 ML BY MOUTH UP TO THREE TIMES DAILY NEEDED active Not Available Not Available No t Available pregabali n 25 mg capsule TAKE 1 CAPSULE BY MOUTH THREE TIMES DAILY 01/16 completed Not Available Not Available Not Available pregabali n 50 mg capsule TAKE 1 CAPSULE BY MOUTH THREE TIMES DAILY 05/07 completed Not Available Not Available Not Available oxycodone 10 mg tablet TAKE 1 TABLET BY MOUTH THREE TIMES DAILY NEEDED FOR SEVERE ABDOMINA L PAIN active Not Available Not Available No t Available Xifaxan 550 mg tablet TAKE 1 TABLET BY MOUTH TWICE DAILY active Not Available Not Available No t Available lactulose 20 gram/30 mL oral solution Take 30ML up to three times as day as needed. 2023 active Not Available Not Available Not Avai lable Vitals Date Recorded Body height Heart rate Oxygen saturation Oxygen saturation in Arterial blood by Pulse oximetry Systolic blood pressure Diastolic blood pressure Provider Name and Address Organization Details Last Updated DateTime 5 190.5 cm 89 /min 96 % 96 % 118 mm[Hg] 70 mm[Hg] Belem Mcclellan [facility] 5 09:41:25 Date Recorded Body height Body mass index (BMI) Body weight Heart rate Oxygen saturation Oxygen saturation in Arterial blood by Pulse oximetry Systolic blood pressure Diastolic blood pressure Provider Name and Address Organization Details Last Updated DateTime 5 190.5 cm 29.1 kg/m2 145092. 02 g 96 /min 99 % 99 % 110 mm[Hg] 60 mm[Hg] Molly [facility] 5 11:05:43 Date Recorded Body height Heart rate Oxygen saturation Oxygen saturation in Arterial blood by Pulse oximetry Systolic blood pressure Diastolic blood pressure Provider Name and Address Organization Details Last Updated DateTime 5 190.5 cm 115 /min 97 % 97 % 110 mm[Hg] 78 mm[Hg] Yadi Ro [facility] 5 09:45:40 Date Recorded Body height Body mass index (BMI) Body weight Heart rate Oxygen saturation Oxygen saturation in Arterial blood by Pulse oximetry Systolic blood pressure Diastolic blood pressure Provider Name and Address Organization Details Last Updated DateTime 4 190.5 cm 28.7 kg/m2 164272. 25 g 86.98 /min 99 % 99 % 100 mm[Hg] 58 mm[Hg] Molly Joyner [facility] 4 09:17:17 Social History Question Answer Notes LastModified by Organizat ion Details LastModified Time Tobacco Smoking Status Never Smoker Megan Joya [facility] 01/05/2024 09:10:59 Smokeless Tobacco? Currently Chews Tobacco [email or web address] Information not available 01/05/2024 Sex: Unknown Functional Status Question Answer Note LastModified by Organization D etails LastModified Time What is your level of alcohol consumption? None [email or web address] Information not available 12/20/2023 Are you currently employed? No [email or web address] Information not available 02/07/2024 Mental Status None recorded. Family History Relationship Description Onset Age of this Age Resolved Age Notes LastModified by Organization Details LastModified Time Unspecified Relation Heart disease Not available 2023 17:29:17 Unspecified Relation Malignant neoplastic disease [email or web address] Not available 2023 17:29:26 Unspecified Relation Hypertensive disorder [email or web address] Not available 2023 17:29:39 Unspecified Relation Cerebrovascu lar accident [email or web address] Not available 17:29:52 Unspecified Relation Diabetes mellitus [email or web address] Not available 2023 17:30:04 Medical History Condition Response Back Problems Y Immunizations Vaccine Type Date Status Note Provider Nam e and Address Organization Details Recorded Time COVID-19, mRNA, LNP-S, PF, 30 mcg/0.3 mL dose 03/09/2021 completed Madhurishen Arciniega [facility] 12/13/2023 12:45:52 COVID-19, mRNA, LNP-S, PF, 30 mcg/0.3 mL dose 03/30/2021 completed Madhuri Arciniega [facility] 12/13/2023 12:45:52 Tdap 10/22/2020 completed Madhuri Towers null, [facility] 12/13/2023 12:45:52 Hep B, adult 06/29/2017 completed Madhuri Towers null, [facility] 12/13/2023 12:45:52 Hep B, adult 12/23/2016 completed Madhuri Towers null, [facility] 12/13/2023 12:45:52 Hep B, adult 02/13/2017 completed Madhuri Towers null, [facility] 12/13/2023 12:45:52 Hep A, adult 06/29/2017 completed Madhuri Towers null, [facility] 12/13/2023 12:45:52 Hep A, adult 12/23/2016 completed Madhuri Towers null, [facility] 12/13/2023 12:45:52 Past Encounters Encounter ID Performer Location Encounter Start Date Encounter Closed Date Diagnosis/Indication Diagnosis SNOMED-CT Code Diagnosis ICD10 Code Diagnosis Note [id number] Arielle Moody MD [facility] ([place]) [address] [facility] [place] [address] 11/08/2023 12:34:21 11/20/2023 16:01:27 Closed fracture of left clavicle 9534270557 5760963 S42.002A [id number] [facility] ([place] [address] [place] [address] 11/09/2023 11:35:11 11/21/2023 10:03:00 [id number] Arielle Moody MD [facility] ([place]) [address] [place] [address] 11/09/2023 11:35:12 11/10/2023 15:28:13 [id number] Ventura Bang MD [address] ([place]) [address] [place] [address] 11/17/2023 08:50:07 11/17/2023 09:36:50 Alcoholic cirrhosis 041438355 K70.31 Ascites du e to alcoholic cirrhosis 5619774582 686904 K70.31 Peripheral edema 4647404 00 R60.9 Hepatic encephalopathy 77078564 K76.82 [id number] Arielle Moody MD [facility] ([place]) 15 [place] [address] 11/22/2023 13:08:12 11/24/2023 05:34:00 Closed fracture of left clavicle 8918779844 5736297 S42.032D Pain of ri ght shoulder joint 8997606043 9397447 M25.511 S42.111S [id number] Rosita Tobin, SUSANNA, INVERTED BLOCK OPERATOR [facility] ([place]) [address] [facility] [place] [address] 12/13/2023 12:02:58 12/13/2023 12:53:44 Cervical radiculopathy 86743436 M54.12 Serum crea tinine above reference range 229083055 R79.89 Alcoholic cirrhosis 4200 67052 K70.31 [id number] Arielle Mooyd MD [facility] ([place]) [address] [facility] [place] [address] 12/20/2023 13:14:08 12/22/2023 06:28:13 Partial thickness rotator cuff tear 660883349 M75.111 Additional diagnosis detail: Incomplete tear of right rotator cuff, unspecifie d whether traumatic Bursitis o f right shoulder 2034065911 27194 M75.51 Closed fra cture of clavicle 26311629 S42.002D Additional diagnosis detail: Closed displaced fracture of left clavicle with routine healing, unspecifie d part of clavicle, subsequent encounter Pain assoc iated with internal prosthetic device 196396319 T84.84XA Additional diagnosis detail: Pain due to internal orthopedic prosthetic devices, implants and grafts, initial encounter Closed fra cture of right scapula 6049298607 2949275 S42.101S Additional diagnosis detail: Closed fracture of right scapula, unspecifie d part of scapula, sequela [id number] Ellen Mendosa, SUSANNA, INVERTED BLOCK OPERATOR [address] [facility] ([place]) [address] [address] 01/05/2024 08:40:34 01/05/2024 12:37:49 Secondary erectile dysfunction 096272498 N52.9 Additional diagnosis detail: ED (erectile dysfunctio n) of organic origin User of sm okeless tobacco 719810857 Z72.0 Additional diagnosis detail: Smokeless tobacco use [id number] Rosita Tobin, TRASH MAN, INVERTED BLOCK OPERATOR [facility] ([place]) [address] [place] [address] 01/08/2024 14:33:44 01/08/2024 15:37:24 Cervical radiculopathy 79623503 M54.12 R93.7 Hernia of anterior abdominal wall 835925205 K43.9 [id number] Alexx Granados MD [address] [facility] ([place]) [address] [place] [address] 01/17/2024 14:39:02 01/19/2024 05:54:56 Hernia of anterior abdominal wall 439904782 K43.9 Alcoholic cirrhosis 4200 [address]167 K70.31 Chews tobacco 37275892 Z 72.0 [id number] Arielle Moody MD [facility] ([place]) [address] [facility] [place] [address] 02/07/2024 13:26:14 02/08/2024 18:20:42 Postoperative visit 609089134 Z48.89 [id number] Ventura Bang MD [facility] 2nd Gastroent erology ([place]) [address] [place] [address] 02/06/2024 10:33:25 02/06/2024 11:28:05 Alcoholic cirrhosis 507853230 K70.31 [id number] Leandra mullins MD [address] [place] ([place]) [address] [place] [address] 02/08/2024 10:12:35 02/08/2024 16:14:39 Spinal stenosis in cervical region 05210660 M48.02 [id number] Ceasar Case MD [facility] [address] [place] [address] 04/18/2024 08:40:37 04/18/2024 10:04:21 Preprocedural examination done 0009301615 34645 Z01.818 [id number] Keerthi Olivas APRN, INVERTED BLOCK OPERATOR [address] [facility] [place] ([place]) [address] [place] [address] 05/07/2024 08:37:01 05/07/2024 12:34:40 Cervical radiculopathy 62071079 M54.12 R93.7 [id number] Ventura Bang MD [address] Gastro[facility] [place]ology ([place]) [address] [facility],2nd [place] [address] 05/07/2024 10:52:22 05/07/2024 12:01:41 Alcoholic cirrhosis 130861188 K70.31 Hepatic encephalopathy 49802971 K76.82 [id number] Leandra mullins MD [address] [facility] [place] ([place]) [address] [place] [address] 06/06/2024 11:43:33 06/06/2024 13:58:03 Spinal stenosis in cervical region 03244006 M48.02 [id number] Keerthi Olivas APRN, INVERTED BLOCK OPERATOR [address] [facility] [place] ([place]) [address] [place] [address] 07/18/2024 09:20:34 07/18/2024 14:09:35 Cervical radiculopathy 17279441 M54.12 R93.7 Health Concerns Section Related Observation LastModified by Organization Detai ls LastModified Time None Recorded Concern Status LastModified by Organization Details LastModified Time None Recorded Advance Directives Directive None Recorded Payers Insurance Date Sequence Insurance Name Policy Number Policy Lopes Covered Member ID Lopes Member ID Guarantor Name 08/23/2024 1 [employer] [id number] [id number] Jose Alberto Pickard 06/21/2024 2 [facility] [id number] Julieta Pickard [id number] RADHA Jose Alberto Pickard 08/24/2024 2 [facility] (O) [id number] Julieta Pickard [id number] RADHA Jose Alberto Pickard 06/04/2024 PAYMENT PLAN Jose Alberto Pickard Notes Date Note Type Note Provider Name and Address Organization Details Recorded Time 04/18/2024 text/html 53-year-old male is here for preop appointment patient is going to have neck surgery on April 22 at [facility] by Dr. Nix. Patient has a chronic history of cirrhosis of the liver and patient is on multiple medication for that treatment. Patient is not active alcohol user. Patient has used around 7 years ago. Patient has no history of CAD or CVA or type 2 diabetes or CKD. No COPD or asthma. No sleep apnea. No complaint of easy bruise or easy fluid. Patient has taken anesthesia in the past without any side effects. No other question or concern. Ceasar Case MD [facility], [address], [facility] 04/19/2024 11:47:06 05/07/2024 text/html Jose Alberto Pickard is a 53-year-old male with a PMH significant for alcoholic liver cirrhosis with ascites and esophageal varices (quite drinking about 7 years ago), prior episodes of hepatic encephalopathy, hernia of the anterior abdominal wall s/p repair on 03/06/24, recently identified kidney lesion, and multiple orthopedic surgeries, most recently of the left shoulder who was referred to Neurosurgery for cervical stenosis. An MRI of the cervical spine ([facility]; 01/04/24) demonstrated multilevel degenerative changes most significant at C5-6 and C6-7 with moderately severe central and severe bilateral foraminal stenosis without cord signal changes. He was initially evaluated in the office on 02/08/24 with symptoms of neck pain, right C6/C7 radiculopathy, ataxia with falls, and numbness, tingling, and coldness of the right foot. His symptoms were worse when attempting to mobilize but Lyrica did offer some relief. Neurologic exam was significant for 4+ bilateral design technician, 4+ bilateral intrinsics, 4+ bilateral wrist extension and flexion, 4- right triceps, 4- right deltoid. Mr. Pickard returns to the office today for a 2 week post-operative follow up status post C5-6-7 ACDF on 04/22. Keerthi Olivas APRN, INVERTED BLOCK OPERATOR [address] [place] [address], [phone], [facility] 05/07/2024 10:22:40 05/07/2024 text/html Reason for visit : Referring provider: Previous history of MRSA Y Previous history VRE N Previous history of Cdiff N Blood Thinners? N Diabetic? N Latex Allergy? Y Ventura Bang MD [address] [place] [address], [phone], [facility] 05/07/2024 11:41:07 06/06/2024 text/html HPI:Mr. Pickard is a 53 year old male who is a patient of Dr. Larsen six weeks status post C5-6-7 ACDF returns for follow up via Telehealth Visit. Initial consult: 02/08/24 LAS presents with symptoms of neck pain and right C6/C7 radiculopathy. Neurologic exam significant for 4+ bilateral design technician, 4+ bilateral intrinsics, 4+ bilateral wrist extension and flexion, 4- right triceps, 4- right deltoid. MRI of the cervical spine ([facility] to [place]; 01/04/2024) reveals multilevel degenerative changes most significant at C5-6 and C6-7 with moderately severe central and severe bilateral foraminal stenosis. No cord signal changes. Offered C5-6-7 ACDF.04/22/24C5-6-7 ACDF05/07/24SAS 2 week POSTOP. right arm pain completely resolved, but concerned with pain and grinding in the back of the neck. taking the hydrocodone fairly regularly, but took the muscle relaxer only one time. incision looks great- nearly completely healed.FU at 6 weeks post op for clinical re-evaluation, will discuss PT06/06/24LAS Telehealth The patient advises that he is doing well. He states that his arm, shoulder, wrist and elbow, he states that he has zero pain. He denies difficulty swallowing or voice hoarseness or denies apraxia. He states that he has some difficulty walking, but attributes it to having two hernias.He denies drainage or swelling of the incision. I look forward to his three month follow up visit with flexion/extension views of the cervical spine. Past Medical/Surgical History:barbosa with alcoholic liver cirrhosis with ascites, hernia of the anterior abdominal wall, hepatic encephalopathy, recently identified kidney lesionmultiple orthopedic surgeries Conservative Measures: Per tinent Imaging:Cervical X-rays at [place] on 05/07/24.IMPRESSION: New C5-C7 fusion without complicating feature. Leandra Collier MD [address] [place] [address], [phone], [facility] 06/08/2024 12:22:03 07/18/2024 text/html HPI:Initial cons ult: 02/08/24 LAS presents with symptoms of neck pain and right C6/C7 radiculopathy. Neurologic exam significant for 4+ bilateral design technician, 4+ bilateral intrinsics, 4+ bilateral wrist extension and flexion, 4- right triceps, 4- right deltoid. MRI of the cervical spine ([facility] [place]; 01/04/2024) reveals multilevel degenerative changes most significant at C5-6 and C6-7 with moderately severe central and severe bilateral foraminal stenosis. No cord signal changes. Offered C5-6-7 ACDF.04/22/24 C5-6-7 ACDF05/07/24([facility]) 2 week POSTOP. right arm pain completely resolved, but concerned with pain and grinding in the back of the neck. taking the hydrocodone fairly regularly, but took the muscle relaxer only one time. incision looks great- nearly completely healed.FU at 6 weeks post op for clinical re-evaluation, will discuss PT06/06/24([facility]) Telehealth The patient advises that he is doing well. He states that his arm, shoulder, wrist and elbow, he states that he has zero pain. He denies difficulty swallowing or voice hoarseness or denies apraxia. He states that he has some difficulty walking, but attributes it to having two hernias. He denies drainage or swelling of the incision. I look forward to his three month follow up visit with flexion/extension views of the cervical spine.07/18/24([facility])- Right arm pain gone, just muscle spasm across neck/shoulders. Reported hx lumbar spinal surgery x 2 with residual right foot numbness. I recommend he have this worked up by his PCP and if he has new MRI we can see again. He also thinks some of the back issues may be due to kidney and hernia, so it it may be worthwhile to have those taken care of first. Patient would like to follow up PRN. Past Medical/Surgical History:barbosa with alcoholic liver cirrhosis with ascites, hernia of the anterior abdominal wall, hepatic encephalopathy, recently identified kidney lesionmultiple orthopedic surgeries Pertinent Imaging:Cervical X-rays at [place] on 05/07/24.IMPRESSION: New C5-C7 fusion without complicating feature. Keerthi Olivas, TRASH MAN, INVERTED BLOCK OPERATOR [address] [facility] [place], [address], [facility] 07/18/2024 10:31:48
--- OUTSIDE RECORDS SUMMARY | 2024-09-23 00:55 | XMS_ITS | Clinical Summary ---
Author Organization [facility] Address [address] [place] [address] Care Team Providers Care Equipment Inspector Name Role Phone Chencho Griffith MD Primary Care Provider [phone] Ventura Bang Unavailable Arielle Moody MD Unavailable Ventura Bang Unavailable Richard Das Unavailable Alexx Granados MD Unavailable Source Comments [facility],non-owned Affiliates and Associated Physician Practices is amultiple site organization consisting of ambulatory clinics and hospital sitesin [place], [place], [place] and [place]. This disclosure is being madepursuant to the Care Everywhere program and may not contain all information available regarding this patient. Last updated 18.[facility] Allergies Active Allergy Reactions Criticality Noted Date Comments Bee Venom Anaphylaxis High 09/06/2023 Penicillins Anaphylaxis High 09/06/2023 silk sutures [Other] Other Patient reports body rejected the sutures and developed an infection Skin Adhesives Skin Reactions 09/06/2023 Suture Material Unknown 02/26/2024 Medications * Be aware that medications may not be up to date on this document. Alwaysverify current medications with the patient. Constulose 10 GM/15ML solution Take 30 mL by mouth once daily 4 Active spironolactone (Aldactone) 100 MG tablet Take 3 (three) tablets by mouth once daily 4 Active Xifaxan 550 MG tablet Take 1 (one) tablet by mouth 2 times daily 4 Active furosemide (Lasix) 40 MG tablet Take 2 (two) tablets by mouth once daily 4 Active traZODone (Desyrel) 50 MG tablet Take 1 (one) tablet by mouth nightly as needed for Insomnia 4 Active oxyCODONE, immediate release, (Roxicodone) 5 MG tabletIndication s:Ventral hernia without obstruction or gangrene Take 1 (one) tablet by mouth every 6 hours as needed for Pain 30 tablet 5 Active Active Problems Problem Noted Date Diagnosed Date Ventral hernia without obstruction or gangrene 0 12/14/2023 Alcoholic cirrhosis of liver with ascites 2023 Encounter for pre-transplant evaluation for chronic liver disease 09/06/2023 Hepatic encephalopathy 09/06/2023 Alcohol use disorder 09/06/2023 S/P TIPS (transjugular intrahepatic portosystemi c shunt) 09/06/2023 Severe malnutrition 09/06/2023 Tobacco abuse 09/06/2023 Encounters Date Type Department Care Team Description 08/12/2024 Telephone [facility] - General Surgery [address] [place] [phone] Megan Wheeler, ED Coordination Of Care 07/17/2024 Telephone [facility] - [address] [phone] Rogerio Huertas MD Order 07/16/2024 10:30 AM CDT Office Visit [facility] - [address] [phone] Rogerio Huertas MD Alcoholic cirrhosis of liver with ascites (Primary Dx); Hepatic encephalopathy; S/P TIPS (transjugular intrahepatic portosystemic shunt); Ventral hernia without obstruction or gangrene 07/16/2024 Travel 06/27/2024 Orders Only [facility] PHYS SURGERY [address] [place] [phone] Dmitri Sinclair, DO Hernia of fascia 06/26/2024 11:30 AM BOBBIN COLLECTOR Office Visit [facility] TXP [facility]IME[facility] [address] [place] [phone] None, Physician Ventral hernia without obstruction or gangrene (Primary Dx); Follow-up examination following surgery 06/26/2024 10:58 AM BOBBIN COLLECTOR - 06/26/2024 11:59 PM BOBBIN COLLECTOR Hospital Encounter [facility] CAT SCAN [address] [place] [address] Jeane Rivas MD Discharge Disposition: Home or Self Care 06/26/2024 Travel from Last 3 Months Social History Tobacco Use Types Packs/Day Years Used Date Smoking Tobacco: Never Smokeless Tobacco: Current Chew Tobacco Cessation:Ready to Q uit: Not Asked; Counseling Given: Not Answered Alcohol Use Standard Drinks/Week Comments Not Currently 0 (1 standard drink = 0.6 oz pur e alcohol) last drink about 2 years ago AUDIT-C Answer Date Recorded Q1: How often do you have a drink containing alcohol? Never 03/06/2024 Q2: How many drinks containi ng alcohol do you have on a typical day when you are drinking? Patient does not drink Q3: How often do you have si x or more drinks on one occasion? Never 03/06/2024 Overall Financial Resource Strain (CARDIA) Answe r Date Recorded How hard is it for you to pa y for the very basics like food, housing, medical care, and heating? Not hard at all 03/06/2024 [facility] - Occupational Stress Questionnaire Answer Date Recorded Do you feel stress - tense, restless, nervous, or anxious, or unable to sleep at night because your mind is troubled all the time - these days? Not at all 03/06/2024 Hunger Vital Sign Answer Date Recorded Within the past 12 months, y ou worried that your food would run out before you got the money to buy more. Never true 03/06/20 24 Within the past 12 months, t he food you bought just didn't last and you didn't have money to get more. Never true 03/06/2024 PRAPARE - Transportation Answer Date Re corded In the past 12 months, has l ack of transportation kept you from medical appointments or from getting medications? No 02/22 In the past 12 months, has l ack of transportation kept you from meetings, work, or from getting things needed for daily living? No 03/06/2024 Housing Stability Vital Sign Answer Josh e Recorded In the last 12 months, was t here a time when you were not able to pay the mortgage or rent on time? No 03/06/2024 In the past 12 months, how m any times have you moved where you were living? 0 03/06/2024 At any time in the past 12 m [facility], were you homeless or living in a retirement (including now)? No 03/06/2024 Sex and Gender Information Value Date Recorded Sex Assigned at Not on file Legal Sex Male 1:08 PM CDT Gender Identity Not on file Sexual Orientation Not on file Last Filed Vital Signs Vital Sign Reading Time Taken Comments Blood Pressure 121/78 07/16/2024 10:50 AM CDT Pulse 96 07/16/2024 10:50 AM CDT Temperature 36.9 C (98.5 F) 07/16/2024 10:50 AM CDT Respiratory Rate 12 06/26/2024 11:2 4 AM BOBBIN COLLECTOR Oxygen Saturation 98% 07/16/2024 10: 50 AM CDT Inhaled Oxygen Concentration - - Weight 111.4 kg (245 lb 9.6 oz) 025 10:50 AM CDT Height 188 cm (6' 2) 07/16/2024 10:50 AM CDT Body Mass Index 31.53 07/16/2024 10:50 AM CDT Plan of Treatment Upcoming Encounters Date Type Department Care Team (Late st Contact Info) Description 12/31/2024 1:00 PM CDT Office Visit [facility] - GI [address] [place] [address], [place] [phone] Rogerio Huertas MD [address] [place] [address] [place] [address] Health Maintenance Due Date Last Done Comments COLOGUARD (AGES 45-75) - COLON CA SCREENING 1970 COLON MONITORING 1970 COLONOSCOPY - COLON CA SCREENING 1970 CT COLONOGRAPHY - COLON CA SCREENING 1970 Colorectal Cancer Screening 1970 FIT - COLON CA SCREENING 1970 FLEX SIG - COLON CA SCREENING 1970 LIPID TESTING 1970 HIV SCREENING 1985 DTAP/TDAP/TD VACCINES (1 - Tdap) 1989 HEPATITIS B VACCINE (1 of 3 - 19+ 3-dose series) 1989 PNEUMOCOCCAL VACCINE 50+ (1 of 2 - PCV) 1989 ZOSTER VACCINE (1 of 2) 2020 COVID-19 VACCINE (3 - season) 2023 03/30/2021, 03/09/2021 DEPRESSION SCREENING 04/24/2024 INFLUENZA VACCINE (Season Ended) 2024 SCREENING FOR DIABETES 03/10/2027 , 03/09/2024, 03/08/2024, Additional history exists HEPATITIS C SCREENING Completed 03/31/2016 HIB VACCINE Aged Out No longer eligi ble based on patient's age to complete this topic HPV VACCINE Aged Out No longer eligi ble based on patient's age to complete this topic MENINGOCOCCAL (Group B) VACCINE SHARED DECISION-MAKING Aged Out No longer eligible based on patient's age to complete this topic MENINGOCOCCAL GROUPS A/C/Y/W VACCINE Aged Out No longer eligible based on patient's age to complete this topic Medical Devices Implanted Type Area Correctional Officer Lieutenant Device Identifier Shelf Expiration Date Model / Serial / Lot Mesh Srg Sprmsh Ip Sepra 8x4in Rect Mfl Implanted:Qty: 1 on 03/06/2024 by Jeane Rivas MD at [facility] N/A: Abdomen [employer] [id number] 05/21/2025 [id number] / / [id number] Procedures Procedure Name Priority Date/Time Associated Diagnosis Comments CT ABDOMEN PELVIS W CONTRAST Routine 06/26/2024 11:11 AM BOBBIN COLLECTOR History of ventral hernia repair Alcoholic cirrhosis of liver with ascites Generalized abdominal pain CREATININE - POCT INTERFACED Routine 06/26/2024 11:04 AM BOBBIN COLLECTOR BASIC METABOLIC PANEL (CALCIUM TOTAL) Timed 03/10/2024 6:43 AM BOBBIN COLLECTOR from Last 3 Months or Most Recently Relevant to Health Maintenance Results * CT ABDOMEN AND PELVIS WITH IV CONTRAST (06/26/2024 11:11 AM BOBBIN COLLECTOR) Anatomical Region Laterality Modality Abdomen, Pelvis Computed Tomogra phy 06/26/2024 1:20 PM BOBBIN COLLECTOR Impressions 06/26/2024 5:05 PM BOBBIN COLLECTOR Impression: 1.Redemonstrated small ventral abdominal hernia with a wide mouth containing a small loop of nonobstructed small bowel. There is decreased herniation of small bowel compared to prior CT. There is some surrounding stranding/scarring of the abdominal wall fat. 2.Redemonstrated cirrhotic morphology of the liver and sequela of portal hypertension including portosystemic shunting, and splenomegaly. Patent TIPS. > Dictated by Len Cortez MD (residential green building designer). Gisselle Simmons MD have personally reviewed and interpreted this examination/study. > Interpreting Provider: Gisselle Andres MD on 06/26/2024 5:05 PM Narrative 06/26/2024 5:05 PM BOBBIN COLLECTOR PROCEDURE: CT ABDOMEN PELVIS W CONTRAST, DATE/TIME OF EXAM: 06/26/2024 11:12 AM, LOCATION [facility] INDICATION: Z98.890: History of ventral hernia repair Z87.19: History of ventral hernia repair K70.31: Alcoholic cirrhosis of liver with ascites (HCC) R10.84: Generalized abdominal pain ADDITIONAL CLINICAL INFORMATION: Ordering Provider Reason For Exam: assess for new hernia TECHNIQUE: CT of the abdomen and pelvis was performed following the uneventful administration of 100 mL of Isovue 370 intravenous contrast according to standard protocol. COMPARISON: CT liver 12/08/2023 Findings: Lower Chest: Lung bases are clear. Liver: Redemonstrated cirrhotic morphology of the liver. The TIPS is patent. There are paraesophageal and perigastric varices. Gallbladder and Bile Ducts: Multiple gallstones are seen. No wall thickening or pericholecystic fluid. Spleen: Spleen is enlarged up to 15 cm. Pancreas: Normal. Adrenals: Normal. Kidneys: The kidneys enhance symmetrically, no hydronephrosis or nephrolithiasis. Subcentimeter cyst in the left kidney. Gastrointestinal/Mesentery/Peritoneum/Retroperitoneum: Redemonstrated a small ventral abdominal hernia with a wide mouth containing mesenteric fat and minimally a loop of nonobstructed small bowel, series 3 image 98. Decreased herniation of small bowel compared to prior CT. There is some surrounding stranding/scarring of the abdominal wall fat, slightly increased compared to prior exam. The stomach and visualized loops of large and small bowel are otherwise unremarkable. Normal appendix. Bladder: Normal. Reproductive Organs: The prostate is partially calcified. Vasculature: Atherosclerotic calcification of the aorta and its branch vessels. Bones: Bone windows demonstrate no suspicious lytic or blastic lesions. The visible osseous structures are intact. Degenerative changes are seen in the spine. Soft tissues: MIld stranding in the left inguinal region with a clip. Procedure Note Day Andres MD - 06/26/2024 PROCEDURE: CT ABDOMEN PELVIS W CONTRAST, DATE/TIME OF EXAM: 06/26/2024 11:12 AM, LOCATION [facility] INDICATION: Z98.890: History of ventral hernia repair Z87.19: History of ventral hernia repair K70.31: Alcoholic cirrhosis of liver with ascites (HCC) R10.84: Generalized abdominal pain ADDITIONAL CLINICAL INFORMATION: Ordering Provider Reason For Exam: assess for new hernia TECHNIQUE: CT of the abdomen and pelvis was performed following the uneventful administration of 100 mL of Isovue 370 intravenous contrast according to standard protocol. COMPARISON: CT liver 12/08/2023 Findings: Lower Chest: Lung bases are clear. Liver: Redemonstrated cirrhotic morphology of the liver. The TIPS is patent.There are paraesophageal and perigastric varices. Gallbladder and Bile Ducts: Multiple gallstones are seen. No wall thickening or pericholecystic fluid. Spleen: Spleen is enlarged up to 15 cm. Pancreas: Normal. Adrenals: Normal. Kidneys: The kidneys enhance symmetrically, no hydronephrosis or nephrolithiasis. Subcentimeter cyst in the left kidney. Gastrointestinal/Mesentery/Peritoneum/Retroperitoneum: Redemonstrated a small ventral abdominal hernia with a wide mouth containing mesenteric fat and minimally a loop of nonobstructed small bowel, series 3 image 98. Decreased herniation of small bowel comparedto prior CT. There is some surrounding stranding/scarring of the abdominal wall fat, slightly increased compared to prior exam. The stomach and visualized loops of large and small bowel are otherwise unremarkable. Normal appendix. Bladder: Normal. Reproductive Organs: The prostate is partially calcified. Vasculature: Atherosclerotic calcification of the aorta and its branch vessels. Bones: Bone windows demonstrate no suspicious lytic or blastic lesions. The visible osseous structures are intact. Degenerative changes are seen inthe spine. Soft tissues: MIld stranding in the left inguinal region with a clip. Impression: 1.Redemonstrated small ventral abdominal hernia with a wide mouth containing a small loop of nonobstructed small bowel. There is decreased herniation of small bowel compared to prior CT. There is somesurrounding stranding/scarring of the abdominal wall fat. 2.Redemonstrated cirrhotic morphology of the liver and sequela of portal hypertension including portosystemic shunting, and splenomegaly. Patent TIPS. > Dictated by Len Cortez MD (residential green building designer). IGisselle MD have personally reviewed and interpreted this examination/study. > Interpreting Provider: Gisselle Andres MD on 06/26/2024 5:05 PM Jeane Rivas MD CT ORDERABLES Final R esult * CREATININE - POCT INTERFACED (06/26/2024 11:04 AM BOBBIN COLLECTOR) [facility] Creatinine POCT 0.65 0.30 - 1.30 mg/dL 06/26/2024 11:08 AM [facility] eGFR >90 >=90 mL/min/1.7 3 m2 06/26/2024 11:08 AM [facility] Blood BLOOD SPECIMEN / Unknown 06/26/2024 11:04 AM BOBBIN COLLECTOR 06/26/2024 11:08 AM BOBBIN COLLECTOR Jeane Rivas MD LAB - POINT OF CARE ORD ERABLES Final Result [facility] [address] [place] [address], [facility] [phone] * (ABNORMAL) BASIC METABOLIC PANEL (CALCIUM TOTAL) (03/10/2024 6:43 AM BOBBIN COLLECTOR) [facility] BUN 13 7 - 26 mg/dL 03/10/2024 7:57 AM [facility] Creatinine 1.07 0.71 - 1.16 mg/dL 03/10/2024 7:57 AM [facility] Sodium 133(L) 136 - 145 mmol/L 03/10/2024 7:57 AM [facility] Potassium 4.1 3.5 - 4.5 mmol/L 03/10/2024 7:57 AM [facility] Chloride 95(L) 98 - 107 mmol/L 03/10/2024 7:57 AM [facility] CO2 26 22 - 29 mmol/L 03/10/2024 7:57 AM [facility] Glucose 181(H) 70 - 99 mg/dL 03/10/2024 7:57 AM [facility] Calcium 8.3(L) 8.4 - 10.2 mg/dL 03/10/2024 7:57 AM [facility] Anion Gap 12 6 - 16 03/10/2024 7:57 AM [facility] BUN/Creatinine Ratio 12 7 - 03/10/2024 7:57 AM [facility] Osmolality Calculated 281 275 - 295 mOsm/kg 03/10/2024 7:57 AM [facility] eGFR by CKD-EPI 83(L) >=90 mL/min/1.7 3 m2 03/10/2024 7:57 AM [facility] Blood BLOOD SPECIMEN / Unknown Lab Venipuncture / Unknown 03/10/2024 6:43 AM BOBBIN COLLECTOR 03/10/2024 7:27 AM [facility] Jeane Rivas MD LAB - CHEMISTRY ORDERAB LES Final Result Performing Organization Address [facility]/State/ZIP Co de Phone Number [facility] [address] [place] [address], [facility] [phone] from Last 3 Months or Most Recently Relevant to Health Maintenance Insurance JACQUIE Member Subscriber Plan / Payer (Ef fective 2024-Present) Name:Jose Alberto Pickard Member ID:[id number] Relation to Subscriber:Spouse Name:LOVEKAMP,JULIETA Subscriber ID:[id number] Date of :1949 (Home) Address: [address] [place] [address] Payer ID:[id number] (NAIC) Type:PPO Address: [facility] [address] [place] [address] Care Teams Equipment Inspector Relationship Specialty Start Date End Date Chencho Griffith MD [address] [phone] PCP - General Family Medicine 09/06/23 Ventura Bang [address] [place] [phone] Gastroenterology 09/06/23 Arielle Moody MD [address] [phone] Orthopedic Surgery 12/08/23 Ventura Bang [address] [place] [address] [phone] Gastroenterology 12/08/23 Richard Das [address] [place] [phone] [facility] Radiology 12/08/23 Alexx Granados MD [address] [place] [phone] Surgery 01/31/24
[2024-09-23] MEDS: LACTATED RINGERS 1,000 ML 30 ML IV CONT ×2 (07:20→13:07)
[2024-09-23] MEDS: KETOROLAC 15 MG/ML VIAL (*BKC) IV PUSH (07:25)
[2024-09-23 07:32] LABS: Glucose Point of Care 88 mg/dl (65-105)
--- NOTE | 2024-09-23 08:06 | P.PNAN_ITS ---
Anes - Initial Pre Proc Eval Procedure: Operation Date: 09/23/24 09:00 Proposed Procedures p Robotic Assisted Laparoscopic Recurrent Incisional Hernia Repair with Mesh, Possible Open - Alverto Coleman MD Date/Time: 09/23/24 08:06 Surgeon: Alverto Coleman MD Pre Op Diagnosis: Recurrent Reducible Incisional Hernia Patient Data Age: 53 Gender: M Height: 1.91 m Weight: 108.2 kg Last Vital Signs Temp 36.3 C L 09/23/24 06:45 Pulse 74 09/23/24 06:45 Resp 16 09/23/24 06:45 BP 106/64 09/23/24 06:45 Pulse Ox 100 09/23/24 06:45 O2 Del Method Room Air 09/23/24 06:45 Allergies Allergy/AdvReac Type Severity Reaction Status Date / Time bee venom protein (honey bee) Allergy Unknown Anaphylaxis Verified 09/23/24 07:34 Penicillins Allergy Unknown Anaphylaxis Verified 09/23/24 07:34 silk sutures AdvReac Unknown Unknown Uncoded 09/23/24 07:34 skin adhesives AdvReac Unknown Rash Uncoded 09/23/24 07:34 Home Medications ?Medication ?Instructions ?Recorded ?Confirmed ?Type furosemide 80 mg tablet 80 mg PO QAM 08/14/24 09/23/24 History lactulose 10 gram/15 mL oral 30 ml PO DAILY 08/14/24 09/23/24 History solution (Constulose) oxycodone 5 mg tablet 5 mg PO Q6H PRN pain #30 tabs 08/14/24 09/12/24 Rx rifaximin 550 mg tablet (Xifaxan) 550 mg PO BID 08/14/24 09/23/24 History spironolactone 100 mg tablet 100 mg PO TID 08/14/24 09/23/24 History trazodone 50 mg tablet 75 mg PO BID 08/14/24 09/23/24 History Laboratory Tests 09/23/24 09/23/24 07:25 07:30 POC Capillary Glucose 88 mg/dl (65-105) Blood Type O Positive Antibody Screen Pending Patient hx anesthesia problems: none Family hx anesthesia problems: none Results Review: All pre-operative results and documents have been reviewed as part of the pre- operative evaluation. [facility] Past Medical History Medical History (Updated 09/23/24 @ 08:07 by Juan Steward MD) Esophageal varices in cirrhosis Cirrhosis, alcoholic Hx of fracture compound fracture left collar bone 2023 Headache GERD (gastroesophageal reflux disease) Stroke Hypertension Heart problem Anxiety Depression Cancer Surgical History Surgical History (Updated 09/23/24 @ 08:07 by Juan Steward MD) S/P TIPS (transjugular intrahepatic portosystemic shunt) S/P cervical disc replacement 2023 C5, C6 C7, neck disc replacement 2023. Scapula right side metal and screw placed 2023. Hx of hernia repair 2023 Strangulated hernia repair 2023 Family History Family History (Updated 08/14/24 @ 14:35 by Gianna Almanza MA) Mother Cancer Cerebrovascular accident Depression Father Heart problem Hypertension Grandparent Alcoholism Hypertension Sibling Depression Social History Social History Smoking status: Unknown if ever smoked Alcohol intake: former Do You Feel Safe in your Home?: Yes Lack of Transportation: YES Lack of Food: Sometimes True Current Housing: I Have Housing Concerned About Future Housing: YES Difficulty Paying Gas/Electric Bills: YES Difficulty Paying for Meds: YES Currently Unemployed: Decline to Answer Education: Trade/Vocational Certificate Difficulty w/ Childcare or Family Care: No Anes - Eval Final PreProcedure Day of Procedure 09/23/24 08:06 Patient weight: obese Heart: regular rate and rhythm Lungs: clear to auscultation Airway: Mallampati scale class II and special considerations poor dentition Neurological: alert and oriented Last oral intake: >/= 8 hours ASA classification: IV Emergent: no Anesthetic plan: proceed Anesthesia type and monitoring: general ETT and standard monitoring Results Review: All pre-operative results and documents have been reviewed as part of the pre- operative evaluation. Informed Consent: The patient's anesthetic plan and its attendant risks and benefits were discussed with the patient/family/POA. Questions were solicited and answers provided to the satisfaction of the patient/family/POA.
--- NOTE | 2024-09-23 08:41 | P.HP_ITS ---
H&P: HPI History of Present Illness Date/Time: 09/23/24 08:41 Chief Complaint: Recurrent incisional ventral hernia. Narrative: Jose Alberto is a 53 y/o male who presents for evaluation of a large bulge on the left lower abdomen. Patient reports symptoms starting in 2023. He is experiencing left and right lower abdominal pain. He has an extensive surgical history. He had two abdominal hernia repairs in 2023 and multiple inguinal hernia repairs. CT abd/pelvis with contrast was done on 06/26/24 which showed redemonstrated small ventral abdominal hernia with a wide mouth containing a small loop of non obstructed bowel. He has a history of cirrhosis from prior alcohol abuse. He has been sober for about 8 years now. He follows a [employer], Dr. Huertas. Review of Systems Review of Systems: The remainder of the review of systems to include constitutional, HEENT, cardiovascular, respiratory, GI, , integumentary, musculoskeletal, endocrine, immunologic, hematologic, psychiatric, and neurologic are all negative except for which is mentioned above in the HPI. [facility] Past Medical History Medical History Esophageal varices in cirrhosis Cirrhosis, alcoholic Hx of fracture compound fracture left collar bone 2023 Headache GERD (gastroesophageal reflux disease) Stroke Hypertension Heart problem Anxiety Depression Cancer Surgical History Surgical History S/P TIPS (transjugular intrahepatic portosystemic shunt) S/P cervical disc replacement 2023 C5, C6 C7, neck disc replacement 2023. Scapula right side metal and screw placed 2023. Hx of hernia repair 2023 Strangulated hernia repair 2023 Family History Family History Mother Cancer Cerebrovascular accident Depression Father Heart problem Hypertension Grandparent Alcoholism Hypertension Sibling Depression Social History Social History Smoking status: Unknown if ever smoked Alcohol intake: former Do You Feel Safe in your Home?: Yes Lack of Transportation: YES Lack of Food: Sometimes True Current Housing: I Have Housing Concerned About Future Housing: YES Difficulty Paying Gas/Electric Bills: YES Difficulty Paying for Meds: YES Currently Unemployed: Decline to Answer Education: Trade/Vocational Certificate Difficulty w/ Childcare or Family Care: No Meds Home Medications and Allergies Home Medications ?Medication ?Instructions ?Recorded ?Confirmed ?Type furosemide 80 mg tablet 80 mg PO QAM 08/14/24 09/23/24 History lactulose 10 gram/15 mL oral 30 ml PO DAILY 08/14/24 09/23/24 History solution (Constulose) oxycodone 5 mg tablet 5 mg PO Q6H PRN pain #30 tabs 08/14/24 09/12/24 Rx rifaximin 550 mg tablet (Xifaxan) 550 mg PO BID 08/14/24 09/23/24 History spironolactone 100 mg tablet 100 mg PO TID 08/14/24 09/23/24 History trazodone 50 mg tablet 75 mg PO BID 08/14/24 09/23/24 History Allergies Allergy/AdvReac Type Severity Reaction Status Date / Time bee venom protein (honey bee) Allergy Unknown Anaphylaxis Verified 09/23/24 08:10 Penicillins Allergy Unknown Anaphylaxis Verified 09/23/24 08:10 silk sutures AdvReac Unknown Unknown Uncoded 09/23/24 08:10 skin adhesives AdvReac Unknown Rash Uncoded 09/23/24 08:10 Vital Signs Vital Signs - 24 hr 09/23/24 06:45 Temperature 36.3 C L Pulse Rate 74 Respiratory Rate 16 Blood Pressure 106/64 Pulse Oximetry 100 Oxygen Delivery Room Air Exam Const: General: comfortable and no acute distress HENMT: Ears: TM's normal bilaterally Face/Nose/Sinus: Normal nares present Mouth: Yes moist mucous membranes Eyes: General: appearance normal, both eyes and all related structures Sclera: sclerae normal Pupils: Equal, round and reactive pupils present EOM: EOMs intact bilaterally Neck: Neck: supple and no JVD Resp: Effort & Inspection: normal respiratory effort Auscultation: clear to auscultation bilaterally Cardio: Rate: regular rate Rhythm: regular rhythm GI: Other: Midline scar without protrusion in the midline. Large bulge in the left mid lateral and LLQ abdominal wall which is mildly tender to palpation but easily reducible. Skin: General skin exam: normal color and no rashes or lesions noted Neuro: General: gait normal Speech: normal speech Motor exam (neuro): 5/5 motor strength present throughout Sensory Exam: normal sensation Extrem: General: normal to inspection Psych: Mental Status: mental status grossly normal Affect: normal affect Assessment and Plan Assessment and plan (1) Recurrent incisional hernia: Code(s): K43.2 - Incisional hernia without obstruction or gangrene Status: Acute Assessment and Plan: I have reviewed Dr. Rivas's office note and CT report prior to the office visit. In the left mid abdomen and LLQ there is a reducible large bulge that likely represents a formal hernia defect vs deinnervated abdominal wall muscle. Patient is very symptomatic. Will review his CT from [facility] but he may need a repeat CT if his current exam is not concordant with CT findings. He may require a complex abdominal wall reconstruction which may be limited by the fact he has already had an external oblique release. I did discuss with the patient possible referral to Dr. Eason at [facility] but will hold off on referral until I can further review CT scans. Patient is requesting refill for his narcotic pain medication. Will give prescription for Oxycodone 5mg 1-2 q6 hrs, #30. No refills. I reviewed his CT scan of the abdomen pelvis done on June 26, 2024 which was done at [facility]. The area of the hernia on the CT scan really does not correlate with the physical exam findings of the bulge being the left lower quadrant. I suspect this is most likely due to abdominal diastasis. Patient seems to be very symptomatic however. I have discussed with him a robotic assisted laparoscopic approach with the possibility of conversion to an open recurrent hernia repair with mesh. I discussed with him the risks of bowel injury due to possible adhesions of the bowel to the existing abdominal wall mesh. The need for possible bowel resection or repair of enterotomies was discussed in detail. Possible mesh infection and chronic abdominal wall pain due to extensive abdominal reconstruction with mesh also discussed. He understands and wishes to proceed with surgical intervention here at [facility]. Will plan on robotic assisted laparoscopic recurrent incisional hernia repair with mesh, possible conversion open repair with mesh.
--- NOTE | 2024-09-23 08:48 | WPDHPUPDATE1 ---
History and Physical Update Update Date/Time: 09/23/24 08:48 History and Physical has been reviewed, including an updated exam of the patient. There are NO changes in the patient's condition. Risks, benefits, and alternatives have been discussed and questions answered. Patient agrees to proceed with procedure.
[2024-09-23] MEDS: ceFAZolin 2 GM/D5W 50 ML 2 GM/50 ML BAG IVPB (09:02)
[2024-09-23] MEDS: LIDO 1%/EPINEPHRINE 1:100,000 50 ML VIAL 30 ML INFILTRATE (10:18)
[2024-09-23] MEDS: BUPivacaine HCL 0.5% PF 30 ML VIAL INFILTRATE (10:18)
[2024-09-23] MEDS: fentaNYL CITRATE INJ (*CRX) 100 MCG/2 ML VIAL 25 MCG IV PUSH ×8 (13:18→13:54)
[2024-09-23] MEDS: HYDROmorphone HCL INJ (*CRX) 1 MG/ML SYR 0.5 MG IV PUSH ×2 (14:04→14:12)
--- NOTE | 2024-09-23 14:42 | ADMGEN ---
This patient, Jose Alberto Pickard, was admitted to [facility] Surg Room 325-01. Patient/family oriented to hospital policies and general routines including ID bracelet, bed and alarms, visiting hours, pain management, procedures, bathroom and other care routines, personal items, smoking policy, room service/diet, and visiting hours. Information on how to activate the Rapid Response Team has been discussed. Patient/Family are encouraged to report perceived risks to care and to ask questions if they do not understand what they are told or what they should do.
[2024-09-23] MEDS: HYDROmorphone HCL INJ (*CRX) 2 MG/ML VIAL 1 MG IV PUSH (14:50)
[2024-09-23] MEDS: LACTATED RINGERS 1,000 ML 100 ML IV CONT (14:50)
[2024-09-23] MEDS: IBUPROFEN IV 800 MG/200 ML 800 MG/200 ML BAG 400 MG IVPB ×2 (15:03→21:27)
[2024-09-23] MEDS: traZODone HCL 25 MG TABLET 75 MG PO (17:01)
[2024-09-23] MEDS: SPIRONOLACTONE 50 MG TABLET 100 MG PO (17:02)
[2024-09-23] MEDS: ceFAZolin 1 GM/NS 50 ML 1 GM/50 ML BAG IVPB (17:03)
[2024-09-23] MEDS: oxyCODONE HCL (*CRX) 5 MG TAB IR PO (17:04)
[2024-09-23] MEDS: rifAXIMin 550 MG TABLET PO (17:31)
[2024-09-24 00:54] VITALS: BP 119/71; PULSE 85; RESP 18; TEMP 37; O2SAT 98
[2024-09-24] MEDS: oxyCODONE HCL (*CRX) 5 MG TAB IR PO ×3 (01:14→15:40)
[2024-09-24] MEDS: ceFAZolin 1 GM/NS 50 ML 1 GM/50 ML BAG IVPB ×2 (01:14→08:47)
[2024-09-24] MEDS: LACTATED RINGERS 1,000 ML 100 ML IV CONT ×2 (03:43→15:40)
[2024-09-24 06:00] VITALS: BP 104/62; PULSE 81; RESP 18; TEMP 36.4; O2SAT 95
[2024-09-24] MEDS: IBUPROFEN IV 800 MG/200 ML 800 MG/200 ML BAG 400 MG IVPB ×3 (06:05→21:06)
[2024-09-24] MEDS: FUROSEMIDE 80 MG TABLET PO (07:47)
[2024-09-24] MEDS: rifAXIMin 550 MG TABLET PO ×2 (07:47→17:42)
[2024-09-24] MEDS: SPIRONOLACTONE 50 MG TABLET 100 MG PO ×3 (07:47→17:41)
[2024-09-24] MEDS: PANTOPRAZOLE 40 MG TABLET PO (07:47)
[2024-09-24] MEDS: LACTULOSE 20 GM/30 ML UDC PO (07:47)
[2024-09-24 08:00] VITALS: O2SAT 95
[2024-09-24 09:59] VITALS: BP 104/68; PULSE 82; RESP 16; TEMP 36.8; O2SAT 96
--- NOTE | 2024-09-24 12:03 | P.PNGS_ITS ---
Progress Note: A&P Assessment and Plan (1) Recurrent incisional hernia: Code(s): K43.2 - Incisional hernia without obstruction or gangrene Status: Acute Assessment and Plan: Patient complains of abdominal pain that he feels would limit him from discharge today. He also states that he does not have much help at home. Encouraged to get up and move around the room today. Maintain current pain regimen. Plan to discharge when pain is tolerable and follow-up in [address] Coleman in outpatient clinic. Subjective Subjective Date/Time Seen: 09/24/24 12:03 Interval history: Patient stable overnight. No nausea/vomiting. Passing flatus, but no BMs yet. Complains of left midline pain over area where hernia was repaired. Minimal pain over incisional sites. He also notes RLQ pain localized to scar from previous drain placement which he states was present prior to hernia repair. Patient has been taking oxycodone and ibuprofen for pain. He took Dilaudid yesterday, but did not like how it made him ?see double. He also does not want to take Flexeril as he states that he feels it caused gynecomastia after taking it post- operatively for a previous shoulder surgery. Patient expresses that he would like to maintain current pain management regimen today, but he does not feel ready for discharge with current pain levels. He lives with his but she leaves early and gets home late from work, and therefore would not be able to help with transferring. Exam GI: Inspection: non-distended GI Palp: Yes Soft to palpation, Yes Tenderness to palpation present (GI) (Tenderness to palpation left midline abdome. ), No Guarding due to palpation present (GI) and No Hernia present Auscultation: normal bowel sounds Other: Incision sites clean and dry with glue intact. Moderate bruising surrounding each incision site. No dehiscence, purulent drainage, or other signs of infection. Objective Data Vital Signs Vital Signs: Vital Signs - 24 hr 09/23/24 13:07 09/23/24 13:20 09/23/24 13:35 Temperature 97.9 F Pulse Rate 84 82 88 Respiratory Rate 18 14 16 Blood Pressure 121/62 118/72 118/70 Pulse Oximetry 100 99 100 Oxygen Delivery Simple Face Mask Simple Face Mask Room Air Oxygen Flow Rate 8 8 09/23/24 13:50 09/23/24 14:05 09/23/24 14:17 Temperature Pulse Rate 87 86 87 Respiratory Rate 12 12 12 Blood Pressure 118/66 104/76 118/78 Pulse Oximetry 100 96 95 Oxygen Delivery Room Air Room Air Room Air Oxygen Flow Rate 09/23/24 14:40 09/23/24 14:55 09/23/24 15:25 Temperature 97.5 F L 97.5 F L 98.0 F Pulse Rate 89 90 88 Respiratory Rate 20 20 16 Blood Pressure 105/61 112/69 104/72 Pulse Oximetry 98 96 90 Oxygen Delivery Oxygen Flow Rate 09/23/24 16:25 09/23/24 22:37 09/24/24 00:54 Temperature 98.0 F 98.9 F 98.6 F Pulse Rate 95 90 85 Respiratory Rate 18 18 18 Blood Pressure 104/75 114/73 119/71 Pulse Oximetry 94 97 98 Oxygen Delivery Oxygen Flow Rate 09/24/24 06:00 09/24/24 08:00 09/24/24 09:59 Temperature 97.5 F L 98.2 F Pulse Rate 81 82 Respiratory Rate 18 16 Blood Pressure 104/62 104/68 Pulse Oximetry 95 95 96 Oxygen Delivery Room Air Oxygen Flow Rate Intake/Output Intake/Output: Intake & Output 09/21/24 09/22/24 09/23/24 09/24/24 23:59 23:59 23:59 23:59 Intake Total 1540 3350 Output Total 600 Balance 1540 2750 Meds/Results Medications: Active Medications Generic Name Dose Route Start Last Admin Trade Name Freq PRN Reason Stop Dose Admin Cyclobenzaprine HCl 5 mg 09/23/24 14:18 Cyclobenzaprine Hcl 5 Mg Tablet PO Q8H PRN Muscle Spasm Furosemide 80 mg 09/24/24 09:00 09/24/24 07:47 Furosemide 80 Mg Tablet PO 80 mg QAM RENE Administration Hydromorphone HCl 1 mg 09/23/24 14:24 09/23/24 14:50 Hydromorphone Hcl Inj (*Crx) 2 Mg/Ml Vial IV PUSH 1 mg Q4H PRN Administration Pain Rated 7-10 Lactated Ringer's 1,000 mls @ 100 mls/hr 09/23/24 14:18 09/24/24 03:43 Lr - Lactated Ringers Iv IV CONT 100 mls/hr .Q10H RENE Administration Ibuprofen 800 mg in 200 mls @ 400 mls/hr 09/23/24 14:45 09/24/24 06:05 Caldolor 800 Mg/200 Ml IVPB 400 mls/hr Q8HR RENE Administration Lactulose 20 gm 09/24/24 09:00 09/24/24 07:47 Lactulose 20 Gm/30 Ml Udc PO 20 gm DAILY RENE Administration Ondansetron HCl 4 mg 09/23/24 14:18 Ondansetron Inj 4 Mg/2 Ml Vial IV PUSH Q6H PRN Nausea And Vomiting Oxycodone HCl 5 mg 09/23/24 14:18 09/24/24 07:45 Oxycodone Hcl (*Crx) 5 Mg Tab Ir PO 5 mg Q6H PRN Administration pain Pantoprazole Sodium 40 mg 09/24/24 09:00 09/24/24 07:47 Pantoprazole 40 Mg Tablet PO 40 mg QAM RENE Administration Rifaximin 550 mg 09/23/24 17:00 09/24/24 07:47 Rifaximin 550 Mg Tablet PO 550 mg BID RENE Administration Spironolactone 100 mg 09/23/24 17:00 09/24/24 07:47 Spironolactone 50 Mg Tablet PO 100 mg TID RENE Administration Trazodone HCl 75 mg 09/23/24 17:00 09/24/24 07:48 Trazodone Hcl 25 Mg Tablet PO Not Given BID RENE
[2024-09-24] MEDS: HYDROmorphone HCL INJ (*CRX) 2 MG/ML VIAL 1 MG IV PUSH ×2 (12:43→21:04)
[2024-09-24 13:40] VITALS: BP 111/70; PULSE 88; RESP 16; TEMP 36.7; O2SAT 96
--- NOTE | 2024-09-24 15:06 | P.OP_ITS ---
Procedure Note - Detailed Date of Procedure 09/24/24 Pre-op Diagnosis Recurrent Reducible Incisional Hernia Post-op Diagnosis Same Procedure Performed Robotic assisted laparoscopic recurrent incisional hernia repair with Bard Ventralight ST mesh. Surgeon Alverto Coleman MD Anesthesia General Indications Patient is a 53-year-old gentleman with liver cirrhosis which is now compensated after a TIPS procedure. He no longer has any ascites. He previously had repair of a ventral hernia due to incarcerated small bowel. Subsequently had recurrence of hernia and an open incisional hernia repair with mesh with a external component release was performed. He now has a recurrent hernia just to the left of the midline in the mid left abdominal wall and presents now for an attempt at a robotic assisted laparoscopic approach with mesh. Findings The patient had a recurrent incisional hernia to the left of the midline in the mid to lower abdominal wall. The previous placed retro rectus mesh was partially exposed. There were minor adhesions of the omentum to the mesh in the midline and left lower quadrant. Moderate amount of omental adhesions to the left upper quadrant abdominal wall. No bowel adhesions were noted to the mesh or the hernia sac. The defect measured 15x9cm. Description of Procedure After informed consent was obtained patient brought to the operating room placed supine position and general endotracheal anesthesia was administered. A Gibbs catheter was placed decompress the bladder an orogastric tube was placed decompress the stomach. The abdomen was then prepped and draped in usual sterile fashion. A time-out was then performed correctly identifying the patient as well as procedure to be performed. He was given perioperative IV antibiotics. I 1st entered the abdomen left upper quadrant utilizing a 5mm Optiview port. Once inside the abdomen insufflated to adequate pneumoperitoneum of 15mmHg of CO2. My view of the mid and lower abdomen on the left side was obscured by omental adhesions. I was able to initially find my way across the midline to the right side of the abdomen with a laparoscopic and could see that the right side of the abdomen was relatively free of any adhesions. I then placed 8mm robotic trocar ports in the lower right lateral abdominal wall. The laparoscopic was then switched over to the right side port sites and then I proceeded to bring the [employer] robot to the bedside and docked to the patient's right side. The robotic ports were then attached to the robotic arms. Robotic instruments were then advanced into the abdomen under direct visualization. I then scrubbed out the procedure started to perform the dissection robotically. I 1st started by taking down the omental adhesions to the abdominal wall and hernia defect. This is done with robotic enter GI tata and retraction was performed with appropriate tissue graspers. Once all the omental adhesions had been taken down I could now see the hernia defect which was off the midline to the left side. It was just lateral to the previous mesh. A portion of the mesh was seen protruding through the rectus muscle but was covered with peritoneum in the lower midline. This mesh did extend across the left lower abdomen to approximate the mid axillary line. The hernia defect extended lateral to the mid axillary line as extended down to the abdominal wall. I was then able to take down the omental adhesions in the left upper quadrant to expose the 5mm port in left upper quadrant. This was then switched out to a 12mm bedside urology physician assistant trocar port. I then proceeded to decrease the intra-abdominal pressure pressure and the pneumoperitoneum down [id number]. I still was able to pneumoperitoneum to perform closure of the defect without need for a posterior component separation. I did not want perform another component separation as the patient already had an anterior release and component separation previously. Multiple 0 nonabsorbable V lock sutures were then used to approximate the edges of the muscle the defect. The defect measured 15cm in vertical length by 9cm in the lateral edge of the muscle that I could approximate consisted of a portion of the transversalis muscle and the internal oblique muscle. The anterior medial edge of tissue was actually the edge of the previously placed retrorectus mesh. With the low intra-abdominal pneumoperitoneum pressure of 6mm I was able to primarily close the defect with the nonabsorbable 0V lock sutures in a running fashion. I then measured the area and felt that a [id number] piece of Bard Ventralight ST mesh would be appropriate to cover the closed defect and buttress the repair. The mesh was placed into the abdomen through the 12mm left upper quadrant trocar port site. It was then placed over the closed defect in a configuration that had the long axis the mesh parallel to the long axis of the abdomen. There was approximately 5cm of overlap between the closed defect and the edge of the mesh circumferentially. I then circumferentially did fixated the mesh to undersurface of the abdominal wall peritoneum and muscle. A portion the mesh anterior medially was secured to the edge of the previous old mesh. Again permanent permanent nonabsorbable suture was used. Once the mesh was completely fixated circumferentially with the suture I then placed 1 more suture up the center portion of mesh to further approximate the mesh to the abdominal wall muscle. The mesh laid out very nicely with no redundancy with a pneumoperitoneum. I checked and made sure there was no injury to the small irma l or colon. The omentum which had undergone adhesiolysis was completely hemostatic. I then proceeded to remove the 12mm left upper quadrant trocar port superficial to the peritoneum and posterior rectus fascia. This defect was then closed utilizing a running 0 nonabsorbable V lock suture placed robotically. I then removed all the robotic instruments from the abdomen and had the [employer] robot undocked from the patient's bedside. I then scrubbed back into the procedure I then removed all the remaining 8mm trocar ports. I then irrigated all the port sites sterile saline solution hemostasis was excellent. I then closed all the skin incisions and port sites utilizing a running subcuticular 4 Monocryl suture. The incisions were then cleaned and then skin glue and an abdominal binder was placed. At the end the procedure the Gibbs catheter was removed as well as the orogastric tube. The patient tolerated the procedure well no complications. All sponges, needles, and instrument counts were correct at the end procedure. EBL was 50___cc. The patient was awakened and taken to recovery in stable and satisfactory condition. Implants Bard Ventralight ST mesh measuring [id number] placed and intraperitoneal onlay position (IPOM +) with the hernia defect completely primarily closed with nonabsorbable V lock suture. Estimated Blood Loss 50 Urine Output 400 Drains No Packing No Pathology None sent Complications No immediate complications Condition Stable Disposition PACU [facility] Billing Surgery - Charge Forward: Surgery Billing
[2024-09-24] MEDS: traZODone HCL 25 MG TABLET 75 MG PO (17:41)
[2024-09-24 22:00] VITALS: BP 105/58; PULSE 99; RESP 18; TEMP 36.1; O2SAT 96
[2024-09-25] MEDS: LACTATED RINGERS 1,000 ML 100 ML IV CONT (02:50)
[2024-09-25 06:00] VITALS: BP 109/61; PULSE 88; RESP 18; TEMP 36.2; O2SAT 97
[2024-09-25] MEDS: IBUPROFEN IV 800 MG/200 ML 800 MG/200 ML BAG 400 MG IVPB ×2 (06:11→13:01)
[2024-09-25 06:30] LABS: Basophils Percent Auto 0.6 % (0.2-1.2); Eosinophils Absolute Auto 0.3 K/mm3 (0-0.3); Eosinophils Percent Auto 4.7 % (0-4.4); Hemoglobin 12.7 g/dL (14.0-18.0); Immature Granulocyte Absolute 0.03 K/mm3 (0.00-0.031); Immature Granulocyte Percent A 0.4 % (0-0.5); Immature Platelet Fraction Pct 3.5 % (0.9-11.2); Lymphocytes Absolute Auto 1.05 K/mm3 (0.9-3.2); Lymphocytes Percent Auto 14.8 % (18.3-44.2); Mean Corpuscular HGB Conc 34.3 g/dl (32-36); Mean Corpuscular Hemoglobin 33.8 pg (26-34); Mean Corpuscular Volume 98.4 fl (80-100); Mean Platelet Volume 10.4 fl (7.4-10.4); Monocytes Absolute Auto 1.1 K/mm3 (0.1-0.6); Neutrophils Absolute Auto 4.6 K/mm3 (1.3-6.7); Neutrophils Percent Auto 64.5 % (45.5-73.1); Platelet Count Result 88 k/mm3 (150-375); Red Blood Count 3.76 M/mm3 (4.6-6.20); Red Cell Distribution Width 13.6 % (11.5-14.5); White Blood Count 7.1 K/mm3 (4.5-10.0)
[2024-09-25 06:52] LABS: NT Pro B Type Natriuretic Pept 338 pg/mL (19.9-100)
[2024-09-25 08:00] VITALS: O2SAT 97
[2024-09-25] MEDS: LACTULOSE 20 GM/30 ML UDC PO ×3 (08:51→17:37)
[2024-09-25] MEDS: rifAXIMin 550 MG TABLET PO ×2 (08:51→17:37)
[2024-09-25] MEDS: PANTOPRAZOLE 40 MG TABLET PO (08:51)
[2024-09-25] MEDS: FUROSEMIDE 80 MG TABLET PO (08:51)
[2024-09-25] MEDS: SPIRONOLACTONE 50 MG TABLET 100 MG PO ×3 (08:52→17:38)
[2024-09-25] MEDS: HYDROmorphone HCL INJ (*CRX) 2 MG/ML VIAL 1 MG IV PUSH (09:56)
[2024-09-25] MEDS: oxyCODONE HCL (*CRX) 5 MG TAB IR PO (11:04)
--- NOTE | 2024-09-25 12:46 | PM.PNGS ---
Progress Note: A&P Assessment and Plan (1) Recurrent incisional hernia: Code(s): K43.2 - Incisional hernia without obstruction or gangrene Status: Acute Assessment and Plan: Patient still complaining of abdominal pain. However, he does not wish to make any changes to his pain regimen, as he states that narcotics constipate him. Encouraged to get up and move around the room today. Maintain current pain regimen. Plan to discharge when pain is tolerable and follow-up in [address] Coleman in outpatient clinic. Subjective Subjective Date/Time Seen: 09/25/24 12:46 Interval history: Patient stable overnight. He notes postoperative pain to be worse today, but does not wish to make changes to his current pain medication regimen. He is currently receiving oxycodone PO and Dilaudid injections, as well as IV ibuprofen. Patient is passing flatus but has not had a bowel movement since surgery. Eating well. Lactulose increased to t.i.d., which is what the patient was taking prior to admission. He also wishes to increase his Lasix as he feels he is edematous to his thighs. Exam GI: Inspection: non-distended GI Palp: Yes Soft to palpation and Yes Tenderness to palpation present (GI) Auscultation: normal bowel sounds Other: Incision sites clean and dry with glue intact. Moderate bruising surrounding each incision site. No dehiscence, purulent drainage, or other signs of infection. Objective Data Vital Signs Vital Signs: Vital Signs - 24 hr 09/24/24 13:40 09/24/24 22:00 09/25/24 06:00 Temperature 98.1 F 97 F L 97.2 F L Pulse Rate 88 99 88 Respiratory Rate 16 18 18 Blood Pressure 111/70 105/58 L 109/61 Pulse Oximetry 96 96 97 Intake/Output Intake/Output: Intake & Output 09/22/24 09/23/24 09/24/24 09/25/24 23:59 23:59 23:59 23:59 Intake Total 1540 8080 2950 Output Total 2800 1200 Balance 1540 5280 1750 Meds/Results Medications: Active Medications Generic Name Dose Route Start Last Admin Trade Name Freq PRN Reason Stop Dose Admin Cyclobenzaprine HCl 5 mg 09/23/24 14:18 Cyclobenzaprine Hcl 5 Mg Tablet PO Q8H PRN Muscle Spasm Furosemide 80 mg 09/24/24 09:00 09/25/24 08:51 Furosemide 80 Mg Tablet PO 80 mg QAM RENE Administration Hydromorphone HCl 1 mg 09/23/24 14:24 09/25/24 09:56 Hydromorphone Hcl Inj (*Crx) 2 Mg/Ml Vial IV PUSH 1 mg Q4H PRN Administration Pain Rated 7-10 Ibuprofen 800 mg in 200 mls @ 400 mls/hr 09/23/24 14:45 09/25/24 06:11 Caldolor 800 Mg/200 Ml IVPB 400 mls/hr Q8HR RENE Administration Lactulose 20 gm 09/25/24 13:00 Lactulose 20 Gm/30 Ml Udc PO TID RENE Ondansetron HCl 4 mg 09/23/24 14:18 Ondansetron Inj 4 Mg/2 Ml Vial IV PUSH Q6H PRN Nausea And Vomiting Oxycodone HCl 5 mg 09/23/24 14:18 09/25/24 11:04 Oxycodone Hcl (*Crx) 5 Mg Tab Ir PO 5 mg Q6H PRN Administration pain Pantoprazole Sodium 40 mg 09/24/24 09:00 09/25/24 08:51 Pantoprazole 40 Mg Tablet PO 40 mg QAM [facility] Administration Rifaximin 550 mg 09/23/24 17:00 09/25/24 08:51 Rifaximin 550 Mg Tablet PO 550 mg BID [facility] Administration Spironolactone 100 mg 09/23/24 17:00 09/25/24 08:52 Spironolactone 50 Mg Tablet PO 100 mg TID [facility] Administration Trazodone HCl 75 mg 09/23/24 17:00 09/25/24 08:52 Trazodone Hcl 25 Mg Tablet PO Not Given BID [facility] Labs Labs: Laboratory Results - last 24 hr 09/25/24 06:09 WBC 7.1 RBC 3.76 L Hgb 12.7 L Hct 37.0 L MCV 98.4 MCH 33.8 MCHC 34.3 RDW 13.6 Plt Count 88 L MPV 10.4 Immature Gran % (Auto) 0.4 Neut % (Auto) 64.5 Lymph % (Auto) 14.8 L Steele % (Auto) 15.0 H Eos % (Auto) 4.7 H Baso % (Auto) 0.6 Lymph # (Auto) 1.05 Steele # (Auto) 1.1 H Eos # (Auto) 0.3 Baso # (Auto) 0.0 Abs Immat Gran (auto) 0.03 Absolute Neuts (auto) 4.6 Absolute Nucleated RBC 0.000 Nucleated RBC % 0.0 % Immature Plt Fraction 3.5 NT-Pro-B Natriuret Pep 338 H
[2024-09-25] MEDS: FUROSEMIDE INJ 40 MG/4 ML VIAL 20 MG IV PUSH (17:37)
[2024-09-25] MEDS: traZODone HCL 25 MG TABLET 75 MG PO (17:38)
[2024-09-25 20:48] VITALS: BP 123/75; PULSE 92; RESP 16; TEMP 37; O2SAT 99
[2024-09-26 04:47] VITALS: BP 113/60; PULSE 93; RESP 18; TEMP 37.5; O2SAT 95
[2024-09-26] MEDS: rifAXIMin 550 MG TABLET PO ×2 (09:52→17:26)
[2024-09-26] MEDS: PANTOPRAZOLE 40 MG TABLET PO (09:53)
[2024-09-26 09:55] VITALS: BP 108/56; PULSE 95; RESP 16; TEMP 36.9; O2SAT 95
[2024-09-26] MEDS: LACTULOSE 20 GM/30 ML UDC PO ×3 (10:03→17:28)
[2024-09-26] MEDS: traZODone HCL 25 MG TABLET 75 MG PO ×2 (10:03→20:44)
[2024-09-26] MEDS: FUROSEMIDE 80 MG TABLET PO (10:08)
[2024-09-26] MEDS: LIDOCAINE 5% PATCH 1 PATCH TRANSDERM (10:08)
[2024-09-26 11:43] LABS: Glucose Point of Care 119 mg/dl (65-105)
--- NOTE | 2024-09-26 12:01 | PM.PNGS ---
Progress Note: A&P Assessment and Plan (1) Recurrent incisional hernia: Code(s): K43.2 - Incisional hernia without obstruction or gangrene Status: Acute Assessment and Plan: Patient still complaining of abdominal pain. However, he has refused pain mediation since yesterday, as he states that narcotics constipate him. Dulcolax suppository ordered. Patient ambulating without assistance around the room and encouraged to continue this. Patient states he feels stable for discharge once he passes a bowel movement. If itching or increased redness/swelling presents around incision sites consider Benadryl. Plan to discharge today or tomorrow and follow-up in [address] Coleman in outpatient clinic. Subjective Subjective Date/Time Seen: 09/26/24 12:01 Interval history: Patient stable overnight. Afebrile. Normal WBC. Patient is still complaining of abdominal pain, however he has not taken any pain medication since yesterday due to concerns with constipation. He has been ambulating without assistance to and from the bathroom. Erythematous ring surrounding incision sites resembling adverse skin reaction. Not likely infection. Allergy to skin adhesives noted in the chart with reaction being a rash. Also notes reaction to silk sutures, but according to the op note these were not used. Exam GI: Inspection: non-distended Auscultation: normal bowel sounds Other: Incision sites clean and dry with glue intact. Erythema surrounding each incision site resembling adverse skin reaction. Not likely infection. Moderate bruising surrounding each incision site. No dehiscence, purulent drainage, or other signs of infection. Objective Data Vital Signs Vital Signs: Vital Signs - 24 hr 09/25/24 20:48 09/26/24 04:47 09/26/24 09:55 Temperature 98.6 F 99.5 F 98.4 F Pulse Rate 92 93 95 Respiratory Rate 16 18 16 Blood Pressure 123/75 113/60 108/56 L Pulse Oximetry 99 95 95 Intake/Output Intake/Output: Intake & Output 09/23/24 09/24/24 09/25/24 09/26/24 23:59 23:59 23:59 23:59 Intake Total 1540 8080 3490 650 Output Total 2800 1200 Balance 1540 5280 2290 650 Meds/Results Medications: Active Medications Generic Name Dose Route Start Last Admin Trade Name Freq PRN Reason Stop Dose Admin Bisacodyl 10 mg 09/26/24 11:57 Bisacodyl 10 Mg Suppository RECTAL 09/26/24 11:58 ONCE ONE Cyclobenzaprine HCl 5 mg 09/23/24 14:18 Cyclobenzaprine Hcl 5 Mg Tablet PO Q8H PRN Muscle Spasm Furosemide 80 mg 09/24/24 09:00 09/26/24 10:08 Furosemide 80 Mg Tablet PO 80 mg QAM RENE Administration Hydromorphone HCl 1 mg 09/23/24 14:24 09/25/24 09:56 Hydromorphone Hcl Inj (*Crx) 2 Mg/Ml Vial IV PUSH 1 mg Q4H PRN Administration Pain Rated 7-10 Ibuprofen 800 mg in 200 mls @ 400 mls/hr 09/23/24 14:45 09/25/24 20:57 Caldolor 800 Mg/200 Ml IVPB Not Given Q8HR RENE Lactulose 20 gm 09/25/24 13:00 09/26/24 10:03 Lactulose 20 Gm/30 Ml Udc PO 20 gm TID RENE Administration Lidocaine 1 patch 09/26/24 09:00 09/26/24 10:08 Lidocaine 5% Patch TRANSDERM 1 patch DAILY RENE Administration Ondansetron HCl 4 mg 09/23/24 14:18 Ondansetron Inj 4 Mg/2 Ml Vial IV PUSH Q6H PRN Nausea And Vomiting Oxycodone HCl 5 mg 09/23/24 14:18 09/25/24 11:04 Oxycodone Hcl (*Crx) 5 Mg Tab Ir PO 5 mg Q6H PRN Administration pain Pantoprazole Sodium 40 mg 09/24/24 09:00 09/26/24 09:53 Pantoprazole 40 Mg Tablet PO 40 mg QAM RENE Administration Rifaximin 550 mg 09/23/24 17:00 09/26/24 09:52 Rifaximin 550 Mg Tablet PO 550 mg BID RENE Administration Spironolactone 100 mg 09/23/24 17:00 09/26/24 10:05 Spironolactone 50 Mg Tablet PO Not Given TID RENE Trazodone HCl 75 mg 09/23/24 17:00 09/26/24 10:03 Trazodone Hcl 25 Mg Tablet PO 75 mg BID RENE Administration Labs Labs: Laboratory Results - last 24 hr 09/26/24 11:34 POC Capillary Glucose 119 H
[2024-09-26] MEDS: MAGNESIUM HYDROXIDE SUSP 30 ML UDC PO (12:48)
[2024-09-26] MEDS: IBUPROFEN 600 MG TABLET PO ×2 (12:52→20:44)
[2024-09-26] MEDS: BISACODYL 10 MG SUPPOSITORY RECTAL (12:52)
[2024-09-26] MEDS: SPIRONOLACTONE 50 MG TABLET 100 MG PO ×2 (12:54→17:26)
[2024-09-26 14:00] VITALS: BP 120/62; PULSE 84; RESP 20; TEMP 37; O2SAT 96
[2024-09-26 21:20] VITALS: BP 122/64; PULSE 90; RESP 20; TEMP 36.2; O2SAT 97
[2024-09-27] MEDS: IBUPROFEN 600 MG TABLET PO ×2 (04:55→12:06)
[2024-09-27 06:00] VITALS: BP 96/59; PULSE 78; RESP 20; TEMP 35.9; O2SAT 96
[2024-09-27] MEDS: PANTOPRAZOLE 40 MG TABLET PO (08:52)
[2024-09-27] MEDS: FUROSEMIDE 80 MG TABLET PO (08:52)
[2024-09-27] MEDS: SPIRONOLACTONE 50 MG TABLET 100 MG PO ×2 (08:52→12:06)
[2024-09-27] MEDS: rifAXIMin 550 MG TABLET PO (08:52)
[2024-09-27] MEDS: LACTULOSE 20 GM/30 ML UDC PO ×2 (08:59→12:06)
--- NOTE | 2024-09-27 14:02 | P.DS_ITS ---
DS: Admitting Diagnosis Discharge Date 09/27/24 Admitting Diagnosis Recurrent incisional hernia DS: Discharge Diagnosis Discharge Diagnosis (1) Recurrent incisional hernia: Code(s): K43.2 - Incisional hernia without obstruction or gangrene Status: Acute Plan No acute events overnight. Patient is doing much better today. He was able to have a bowel movement. Abdominal pain is still present, but slightly improved. Incision site redness mildly improved. He has not taken narcotics for pain in 2 days. Ambulating without assistance. He is stable for discharge. DS: Summary Hospital Course Reason for hospitalization: Patient is a 53-year-old gentleman with liver cirrhosis which is now compensated after a TIPS procedure. He no longer has any ascites. He previously had repair of a ventral hernia due to incarcerated small bowel. Subsequently had recurrence of hernia and an open incisional hernia repair with mesh with a external component release was performed. He now has a recurrent hernia just to the left of the midline in the mid left abdominal wall and presents now for an attempt at a robotic assisted laparoscopic approach with mesh. Hospital Course: Patient was admitted on 09/23/2024 for robotic assisted laparoscopic recurrent incisional hernia repair with Bard Ventralight ST mesh. After completion of procedure, patient was admitted to inpatient floor for pain control and medical surveillance. On postop day 1 patient reported abdominal pain primarily to the area where the mesh had been placed. Patient took PO narcotics and IV nonsteroidal anti-inflammatory medications for pain. Postop day 2 patient still complains of pain, but did not wish to make any changes to his current pain medication regimen as he felt mycotic 6 constipated him. Was passing flatus but still not had a bowel movement. Slight increase in the patient's Lasix was made due to complaints of leg edema. Postop day 3 patient complained of pain again but refused all pain medication due to concerns with constipation. He was ambulating without assistance and able to go to and from the bathroom. Incision sites had notable surrounding erythema resembling had her skin reaction, not likely infection. It was noted that patient does have a reaction that involves a rash to skin adhesive. Patient did not have itching or pain to these sites. Dulcolax suppository and milk of magnesia administered. Postop day 4 patient was able to have a bowel movement. Still refusing pain medication but feels stable for discharge home. Labs were stable throughout patient's stay. No imaging, microbiology, or pathology. Status at Discharge Functional status at discharge: independent ambulation Overall status at discharge: patient is back to baseline Time Spent with Patient Time attestation: Total time spent providing and/or coordinating discharge services: Exam Const: General: comfortable and no acute distress HENMT: Ears: TM's normal bilaterally Face/Nose/Sinus: Normal nares present Mouth: Yes moist mucous membranes Eyes: General: appearance normal, both eyes and all related structures Sclera: sclerae normal Pupils: Equal, round and reactive pupils present EOM: EOMs intact bilaterally Neck: Neck: supple Resp: Effort & Inspection: normal respiratory effort Auscultation: clear to auscultation bilaterally Cardio: Rate: regular rate Rhythm: regular rhythm GI: Inspection: non-distended GI Palp: Yes Soft to palpation and Yes Tenderness to palpation present (GI) Auscultation: normal bowel sounds Other: Incision sites clean and dry with glue intact. Erythema surrounding each incision site resembling adverse skin reaction. Not likely infection. Moderate bruising surrounding each incision site. No dehiscence, purulent drainage, or other signs of infection. Skin: General skin exam: normal color and no rashes or lesions noted Neuro: General: gait normal Cranial nerves: Yes Equal, round and reactive pupils present Speech: normal speech Motor exam (neuro): 5/5 motor strength present throughout Sensory Exam: normal sensation Extrem: General: normal to inspection Psych: Mental Status: mental status grossly normal Affect: normal affect DS: Data Procedures/Treatments: robotic assisted laparoscopic recurrent incisional hernia repair with Bard Ventralight ST mesh Discharge Plan Discharge Attending physician on discharge: Alverto Coleman Discharging Clinician: Alverto Coleman Anticipated Discharge Date/Time: 09/27/24 10:17 Patient Disposition: Home Activity: may shower Diet: regular Wound Care Instructions: follow printed instructions Discharge Instructions: DISCHARGE INSTRUCTION SHEET FOR HERNIA AND LAP RITO SURGERIES DR. DASILVA PATIENT TO TAKE HOME 1. May shower the day after surgery over incisions. 2. Call office for: * Wound increasingly painful or bleeding * Vomiting * Fever of greater than 101 degrees 3. Expect some blood on dressing and old blood on skin. 4. If no bowel movement for three days, take 1 oz. (30 ml) Milk of Magnesia, if no results, take Fleets enema. 5. No heavy lifting > 5-10 pounds x 4-6 weeks for hernia repairs. 6. No driving while taking narcotic pain medications. 7. Inguinal hernias (men): Ice to groin for 8 hours: 30 minutes on, 30 minutes off. Fresh ice every 2 hours 8. Up walking 10-30 minutes three times per day. 9. Resume previous home medications. 10. Follow-up 10-14 days in office for wound check or as previously scheduled. 11. Oral pain medications prescription to be sent home with patient. 12. NUTRITION: Start out by drinking fluids and increase your diet as tolerated. If you experience nausea, try dry toast, crackers, and 7-UP. If nausea or vomiting persists, contact your surgeon?s office. Rev. 04/06 Patient Instructions: Antibiotic Form, Hydrocodone/Acetaminophen (By mouth) Patient Language: Mohawk Stand Alone Forms: General Discharge Information Follow-up/Referrals: Alverto Coleman MD [Physician] - Call for Appointment (F/u 2 weeks from robotic assisted recurrent incisional hernia repair with mesh) Discharge Medications: Continued Xifaxan 550 mg tablet 550 mg PO BID spironolactone 100 mg tablet 300 mg PO DAILY Patient Comments: TAKES 300MG IN AM furosemide 80 mg tablet 80 mg PO QAM trazodone 50 mg tablet 75 mg PO DAILY lactulose [Constulose] 10 gram/15 mL solution 60 ml PO TID Patient Comments: 30 ML TID oxycodone 5 mg tablet 5 mg PO Q6H PRN (Reason: pain) Qty: 30 0RF Date of admission: 09/24/24 15:51 Primary Care Provider: Laura, Chau Admitting Provider: Alverto Coleman Attending physician on admission: Alverto Coleman Condition: Stable
== END 2024-09-27 12:18 | disposition home or self-care (01) ==
LOC: ANHSURGERY 15:54 → ANH3MEDSUR 15:54
PROVIDERS: Admitting Provider Surgery; Visit Provider Surgery
PROC: (CPT 49617; principal; 2024-09-23 09:00)
DX: K43.2 Incisional hernia without obstruction or gangrene (principal); G89.18 Other acute postprocedural pain; R60.0 Localized edema; K70.30 Alcoholic cirrhosis of liver without ascites; F10.11 Alcohol abuse, in remission; I10 Essential (primary) hypertension; E66.9 Obesity, unspecified; Z68.29 Body mass index [BMI] 29.0-29.9, adult; K21.9 Gastro-esophageal reflux disease without esophagitis; Z98.890 Other specified postprocedural states; Z86.73 Personal history of transient ischemic attack (TIA), and cerebral infarction without residual deficits; Z85.9 Personal history of malignant neoplasm, unspecified; Z79.899 Other long term (current) drug therapy
CPT/HCPCS: 49617; S2900; 36415; 82948; 83880; 85025; 85055; 86850; 86900; 86901; A9270; C1781; G0378; J0690; J1100; J1171; J1741; J1885; J1938; J2004; J2250; J2405; J2704; J3010; J7030; J7120

== ENCOUNTER 2025-04-09 09:21 | Outpatient (CLI) | payer BC, SELFPAY ==
--- NOTE | ~2025-04-09 | CT_ITS ---
EXAMINATION: CT abdomen pelvis wo con DATE: 04/09/2025 09:47 INDICATION: Unspecified abdominal pain TECHNIQUE: Computed tomography (CT) of the abdomen and pelvis was performed without intravenous contrast. Automated exposure control and iterative reconstruction technique were employed. The dose-length product was 1181.46 mGy-cm. COMPARISON: CT dated 06/26/2024 FINDINGS: Lung bases are clear. Heart size is normal. No pericardial or pleural effusion. Nodular cirrhotic liver with change of prior transjugular intrahepatic portosystemic shunt (TIPS) in expected position. Mild splenomegaly measuring 14.2 cm maximal length consistent with secondary portal venous hypertension. There are few calcified gallstones the dependent aspect of the normal-appearing gallbladder. Pancreas, bilateral adrenal glands and kidneys are normal. Bladder is normal. Bowels including the appendix are normal. Midline abdominal wall surgical scar. No free intraperitoneal gas or fluid. No pathologically enlarged abdominal or pelvic lymphadenopathy. Surgical clips at the left groin and suggestion of additional subtle postoperative change of the right groin which could be related to prior internal hernia repairs. No free intraperitoneal gas or fluid. No pathologically enlarged abdominal or pelvic lymphadenopathy. Severe spondylosis at the lumbosacral joints with mild to moderate spondylosis more cephalad lumbar and lower thoracic spine. Chronic mild anterior wedging at T11 and T12. IMPRESSION: 1. No acute intra-abdominal/pelvic process. 2. Cirrhosis and splenomegaly suggesting secondary portal venous hypertension with change of prior TIPS in expected position. Reviewed, dictated and finalized at location A. TRICAL INSTRUMENT TECHNICIAN IMPRESSION: 1. No acute intra-abdominal/pelvic process. 2. Cirrhosis and splenomegaly suggesting secondary portal venous hypertension w ith change of prior TIPS in expected position.
--- OUTSIDE RECORDS SUMMARY | 2025-04-09 10:24 | XMS_ITS | Clinical Summary ---
Author Organization [facility] Address [facility] [place] [address] Care Team Providers Care Cafeteria Associate Name Role Phone Chencho Griffith MD Primary Care Provider [phone] Social History Tobacco Use Types Packs/Day Years Used Date Smoking Tobacco: Never Assessed Sex and Gender Information Value Date Recorded Sex Assigned at Not on file Legal Sex Male 9:13 PM CDT Gender Identity Not on file Sexual Orientation Not on file Last Filed Vital Signs Vital Sign Reading Time Taken Comments Blood Pressure 140/88 12/08/2017 8:52 AM CDT Pulse 101 12/08/2017 8:52 AM CDT Temperature - - Respiratory Rate - - Oxygen Saturation - - Inhaled Oxygen Concentration - - Weight 108.6 kg (239 lb 8 oz) 12/08/2017 8:52 AM CDT Height 190.5 cm (6' 3) 12/08/2017 8:52 AM CDT Body Mass Index 29.94 12/08/2017 8:52 AM CDT Plan of Treatment Health Maintenance Due Date Last Done Comments Annual Physical 1973 DTaP, Tdap and Td Vaccines ( 1 - Tdap) 1989 Hepatitis B Vaccines (1 of 3 - 19+ 3-dose series) 1989 Pneumococcal Vaccine: 50+ Ye ars (1 of 1 - PCV) 2020 Zoster Vaccines (1 of 2) 2020 COVID-19 Vaccine (2024-2 6 season) 2024 Influenza Adult (#1) 2025 Colorectal Cancer Screening Colonoscopy (10 Years) 06/29/2028 06/29/2018 Hepatitis C Completed 03/31/2016 Hepatitis A Vaccines Aged Out No long er eligible based on patient's age to complete this topic Meningococcal B Vaccine Aged Out No l onger eligible based on patient's age to complete this topic Meningococcal Vaccine Aged Out No ta tong eligible based on patient's age to complete this topic RSV Immunizations Under 20 Months Aged Out No longer eligible based on patient's age to complete this topic Procedures Procedure Name Priority Date/Time Associated Diagnosis Comments COLONOSCOPY/EGD GENERIC (SCAN ORDER) Routine 06/29/2018 HEPATITIS PANEL,ACUTE Routine 03/31/2016 7:00 AM LOT BOSS from Last 3 Months or Most Recently Relevant to Health Maintenance Results * COLONOSCOPY/EGD (06/29/2018) us Documents Scanned SCANNING Edited Result - Final * HEPATITIS PANEL,ACUTE (03/31/2016 7:00 AM LOT BOSS) HAV IGM NON-REACTIVE IgM ANTI HAV NOT DETECTED. DOES NOT EXCLUDE THE POSSIBILITY OF EXPOSURE TO OR INFECTION WITH HAV. LEVELS OF IgM ANTI HAV MAY BE BELOW THE CUTOFF IN EARLY INFECTION. NR^NON-RE A [facility] TO EPIC CONVERSION HEP B CORE IGM NON-REACTIVE IgM ANTI HBc NOT DETECTED. DOES NOT EXCLUDE THE POSSIBILITY OF EXPOSURE TO OR INFECTION WITH HBV. NO RETEST REQUIRED. NR^NON-RE A [facility] TO EPIC CONVERSION HEPATITIS B SURFACE AG NON-REACTIVE HBsAg NOT DETECTED. NR^NON-RE A [facility] TO EPIC CONVERSION HEPATITIS C AB NON-REACTIVE ANTIBODIES TO HCV NOT DETECTED. DOES NOT EXCLUDE THE POSSIBILITY OF EXPOSURE TO HCV. NR^NON-RE A [facility] TO EPIC CONVERSION 03/31/2016 7:00 AM LOT BOSS 03/31/2016 7:00 AM [facility] BOSS Narrative [facility] TO EPIC CONVERSION - 04/01/2016 8:25 AM LOT BOSS Result Communication: No patient communication needed at this time us Dinesh Orellana MD LABORATORY Final Resu lt [facility] TO EPIC CONVERSION from Last 3 Months or Most Recently Relevant to Health Maintenance Insurance [facility] Care Teams Cafeteria Associate Relationship Specialty Start Date End Date Chencho Griffith MD [address] [place] [address] PCP - General FAMILY PRACTICE 03/21/23
--- OUTSIDE RECORDS SUMMARY | 2025-04-09 10:24 | XMS_ITS | Clinical Summary ---
Author Organization [facility] Address [address] [place] [address] Care Team Providers Care Bin Piler Name Role Phone Chencho Griffith MD Primary Care Provider [phone] Ventura Bang Unavailable Arielle Moody MD Unavailable Ventura Bang Unavailable Richard Das Unavailable Alexx Granados MD Unavailable Source Comments [facility],non-owned Affiliates and Associated Physician Practices is amultiple site organization consisting of ambulatory clinics and hospital sitesin [place], [place], [place]. This disclosure is being madepursuant to the Care Everywhere program and may not contain all information available regarding this patient. Last updated 18.[facility] Allergies Active Allergy Reactions Criticality Noted [...] Encounters Date Type Department Care Team Description 01/10/2025 Orders Only [facility] - [address] [place] [address] Rogerio Huertas MD Alcoholic cirrhosis of liver with ascites; Hepatic encephalopathy; S/P TIPS (transjugular intrahepatic portosystemic shunt); Ventral hernia without obstruction or gangrene from Last 3 Months Social History Tobacco [...] and heating? Not hard at all 03/06/2024 [facility] - Occupational Stress [...] any time in the past 12 m [facility], were you homeless or living in a [facility] (including now)? No 03/06/2024 Sex and Gender [...] Respiratory Rate 12 06/26/2024 11:2 4 AM [employer] EMISSIONS Oxygen Saturation 98% 07/16/2024 10: 50 AM CDT Inhaled Oxygen Concentration - - Weight 111.4 kg (245 lb 9.6 oz) 025 10:50 AM CDT Height 188 cm (6' 2) 07/16/2024 10:50 AM CDT Body Mass Index 31.53 07/16/2024 10:50 AM CDT Plan of Treatment Health Maintenance Due Date Last Done Comments COLOGUARD (AGES 45-75) - COLON CA SCREENING 1970 COLON MONITORING 1970 COLONOSCOPY - COLON CA SCREENING 1970 CT COLONOGRAPHY - COLON CA SCREENING 1970 Colorectal Cancer Screening 1970 FIT - COLON CA SCREENING 1970 FLEX SIG - COLON CA SCREENING 1970 LIPID TESTING 1970 HIV SCREENING 1985 HEPATITIS C SCREENING 12/23/1988 DTAP/TDAP/TD VACCINES (1 - Tdap) 1989 HEPATITIS B VACCINE (1 of 3 - 19+ 3-dose series) 1989 PNEUMOCOCCAL VACCINE 50+ (1 of 2 - PCV) 1989 ZOSTER VACCINE (1 of 2) 2020 DEPRESSION SCREENING 04/24/2024 COVID-19 VACCINE (3 - season) 2024 03/30/2021, 03/09/2021 INFLUENZA VACCINE (#1) 2024 SCREENING FOR DIABETES 03/10/2027 , 03/09/2024, 03/08/2024, Additional history exists HIB VACCINE Aged Out No longer eligi [...] this topic Medical Devices Implanted Type Area Stone Decorator Device Identifier Shelf Expiration Date Model / Serial / Lot Mesh Srg Sprmsh Ip Sepra 8x4in Rect Mfl Implanted:Qty: 1 on 03/06/2024 by Jeane Rivas MD at [facility] N/A: Abdomen [employer] [id number] 05/21/2025 [id number] / / [id number] Procedures Procedure Name Priority Date/Time Associated Diagnosis Comments BASIC METABOLIC PANEL (CALCIUM TOTAL) Timed 03/10/2024 6:43 AM [employer] EX[employer] EMISSIONS from Last 3 Months or Most Recently Relevant to Health Maintenance Results * (ABNORMAL) BASIC METABOLIC PANEL (CALCIUM TOTAL) (03/10/2024 6:43 AM [facility]) BUN 13 7 - 26 mg/dL 03/10/2024 7:57 AM [facility] Creatinine 1.07 0.71 - 1.16 mg/dL 03/10/2024 7:57 AM [facility] Sodium 133(L) 136 - 145 mmol/L 03/10/2024 7:57 AM [facility] Potassium 4.1 3.5 - 4.5 mmol/L 03/10/2024 7:57 AM [facility] Chloride 95(L) 98 - 107 mmol/L 03/10/2024 7:57 AM [facility] CO2 26 22 - 29 mmol/L 03/10/2024 7:57 AM [facility] Glucose 181(H) 70 - 99 mg/dL 03/10/2024 7:57 AM [facility] Calcium 8.3(L) 8.4 - 10.2 mg/dL 03/10/2024 7:57 AM [facility] Anion Gap 12 6 - 16 03/10/2024 7:57 AM [facility] BUN/Creatinine Ratio 12 7 - 23 03/10/2024 7:57 AM [facility] Osmolality Calculated 281 275 - 295 mOsm/kg 03/10/2024 7:57 AM [facility] eGFR by CKD-EPI 83(L) >=90 mL/min/1.7 3 m2 03/10/2024 7:57 AM [facility] Blood BLOOD SPECIMEN / Unknown Lab Venipuncture / Unknown 03/10/2024 6:43 AM [employer] EMISS[employer] 03/10/2024 7:27 AM [facility] us Jeane Rivas MD LAB - CHEMISTRY ORDERAB LES Final Result [facility] [address] [place] [address], [place] [phone] from Last 3 Months or Most Recently Relevant to Health Maintenance Insurance [employer] Care Teams Bin Piler Relationship Specialty Start Date End Date Chencho Griffith MD [facility] [phone] PCP - General Family Medicine 09/06/23 Ventura Bang [address] [place] [id number] Gastroenterology 09/06/23 Arielle Moody MD [address] [phone] Orthopedic Surgery 12/08/23 Ventura Bang [address] [place] [id number] Gastroenterology 12/08/23 Richard Das [facility] [address] [place] [phone] [facility] 12/08/23 Alexx Granados MD [address] [place] [address] [phone] Surgery 01/31/24
== END 2025-04-09 09:22 | disposition home or self-care (01) ==
PROVIDERS: PCP Surgery; Visit Provider Surgery
DX: R10.9 Unspecified abdominal pain (principal); K74.60 Unspecified cirrhosis of liver; R16.1 Splenomegaly, not elsewhere classified
CPT/HCPCS: 74176